=== PATIENT | female | born 1985 | race Caucasian/White ===

== ENCOUNTER → 2016-11-05 | Outpatient (CLI) | payer BC ==
[~2016-11-05] MED LIST: HYDCR1 EXT; HYDR-5688 PO; MTR600X PO; NORE0.3527 PO; OXYC5TAB PO; PRENTAB26 PO
--- NOTE | 2016-11-05 08:59 | DIAGNOSTIC IMAGING REPORT ---
PELVIS CT WITH INTRAVENOUS AND ORAL CONTRAST HISTORY: Prior . Pain at scar. TECHNIQUE: Multiaxial CT images of the pelvis are performed following the use of intravenous and oral contrast. COMPARISON STUDY: Abdomen and pelvis CT 12/11/2014. FINDINGS: No pneumoperitoneum or pneumatosis. No suspicious lytic or blastic osseous lesions. There is a skin marker overlying the lower anterior pelvic wall. Deep to the skin marker there is a linear scarlike density consistent with prior . No fluid collections or masses identified within the lower anterior pelvic wall. No pelvic or inguinal lymphadenopathy. The bladder, uterus, bilateral adnexa are unremarkable. No pelvic free fluid. The visualized loops of bowel show no wall thickening or obstruction. IMPRESSION: 1. Small linear scarlike density within the lower anterior abdominal wall consistent with prior scar. This is within the range of normal limits. There is no masses, fluid collections, or significant inflammatory change to suggest an acute process. 2. Otherwise, no significant abnormality identified within the pelvis. Electronically signed by: Byron Spangler M.D. 11/05/2016 8:57 AM Dictated Date/Time: 11/05/2016 8:51 AM
== END | disposition home or self-care (01) ==
LOC: C.CTS 08:21
PROVIDERS: ATTEND Surgery
DX: R10.9 Unspecified abdominal pain (principal); R19.00 Intra-abdominal and pelvic swelling, mass and lump, unspecified site

== ENCOUNTER 2016-12-16 12:28 | Day surgery (SDC) | payer BC, OTHER ==
[2016-12-01 14:26] VITALS: BMI 31.0
[~2016-12-16] VITALS: Ht 162.6 cm; Wt 82.7 kg
[~2016-12-16 12:28] MED LIST changes: +ATROPINE SULFATE 0.1 MG/ML 5ML SYR IV PRN; +EpHEDrine SULFATE INJ 50 MG/ML AMP IV PRN; +FENTANYL CITRATE INJ 50 MCG/1 ML 2 ML VIAL IV PRN; +HEPARIN SOD 5000 UNIT/0.5 ML CARP SQ SCH; -HYDCR1 EXT; -HYDR-5688 PO; +HYDROmorphone INJ 1 MG/ML SYR IV PRN; +LACTATED RINGER'S 1000ML 1,000 ML IV SCH; -MTR600X PO; +ONDANSETRON INJ 2 MG/ML 2 ML VIAL IV PRN; -OXYC5TAB PO
[2016-12-16 12:47] VITALS: BP 113/69; PULSE 100; TEMP 37.1; O2SAT 95; Ht 162.6 cm; Wt 82.7 kg
[2016-12-16] MEDS ORDERED: TRIAMCINOLONE ACET 40 MG/ML VIAL ONE (13:05)
[2016-12-16] MEDS ORDERED: DEXAMETHASONE SOD INJ 4 MG/ML VIAL ONE ×2 (13:14→14:08)
[2016-12-16] MEDS ORDERED: MIDAZOLAM HCL 1 MG/ML 2ML VIAL ONE ×3 (13:14→14:08)
[2016-12-16] MEDS ORDERED: GLYCOPYRROLATE INJ 0.2 MG/ML VIAL ONE (13:14)
[2016-12-16] MEDS ORDERED: SUCCINYLCHOLINE CHLORIDE 20 MG/ML 10 ML VIAL IV ONE ×2 (13:14→14:08)
[2016-12-16] MEDS ORDERED: LIDOCAINE HCL 2% 2 ML VIAL (20MG/ML) ONE ×2 (13:14→14:08)
[2016-12-16] MEDS ORDERED: EpHEDrine SULFATE INJ 50 MG/ML AMP ONE (13:14)
[2016-12-16] MEDS ORDERED: NEOSTIGMINE METHYLSULFATE 5 MG/5 ML SYR ONE (13:14)
[2016-12-16] MEDS ORDERED: PROPOFOL IV EMULSION 10 MG/ML 20 ML VIAL IV ONE ×3 (13:14→14:27)
[2016-12-16] MEDS ORDERED: ROCURONIUM BROMIDE 10 MG/ML 5 ML VIAL ONE (13:14)
[2016-12-16] MEDS ORDERED: PHENYLEPHRINE HCL INJ 10 MG/ML VIAL ONE (13:14)
[2016-12-16] MEDS ORDERED: FENTANYL CITRATE INJ 50 MCG/1 ML 2 ML VIAL ONE ×4 (13:14→15:13)
[2016-12-16] MEDS ORDERED: ONDANSETRON INJ 2 MG/ML 2 ML VIAL ONE ×3 (13:14→14:27)
[2016-12-16] MEDS ORDERED: METOCLOPRAMIDE HCL INJ 5 MG/ML 2 ML VIAL ONE (13:36)
[2016-12-16] MEDS ORDERED: ACETAMINOPHEN 1000 MG/100 ML IV IV ONE (13:36)
[2016-12-16] MEDS ORDERED: HYDR-5688 PO (13:57)
--- NOTE | 2016-12-16 13:59 | History & Physical Bridge Note ---
H&P Re-Evaluation Bridge Note: I have examined the patient, reviewed the History & Physical and in the interval since the performance of the History & Physical I have noted the following changes of clinical significance: No changes noted
[2016-12-16] MEDS: CEFAZOLIN 2000 MG/60 ML D5W IV SCH ×2 (14:00→14:31)
--- NOTE | 2016-12-16 14:01 | Discharge Instructions ---
Discharge Instructions Admission Reason for Admission: Abdominal Pain Discharge Discharge Diagnosis / Problem: Abdominal Pain Discharge Goals Goal(s): Decrease discomfort, Improve function Activity Recommendations Activity Limitations: as noted below Lifting Limitations: no more than 5 pounds Exercise/Sports Limitations: until after follow-up appointment May Resume Sexual Activity: after follow-up appointment Shower/Bathe: tomorrow . Instructions / Follow-Up Instructions / Follow-Up Please follow-up with Dr. Daigle in the office in 1-2 weeks. Please call the office at [phone] with any questions or concerns. Current Hospital Diet Patient's current hospital diet: Discharge Diet Recommended Diet: Regular Diet Pending Studies Studies pending at discharge: no Medical Emergencies . Who to Call and When: Medical Emergencies: If at any time you feel your situation is an emergency, please call 911 immediately. . Non-Emergent Contact Non-Emergency issues call your: Primary Care Provider, Surgeon Call Non-Emergent contact if: temperature is above 101, your pain is not controlled, wound has increased drainage, wound has increased redness . "Provider Documentation" section prepared by Renetta Jones. VTE Core Measure Inpt VTE Proph given/why not?: Unfractionated heparin SQ, SCD's
[2016-12-16] MEDS ORDERED: BUPIVACAINE/EPINEPHRINE 0.5% MPF 1:200,000 30 ML VIAL ONE (14:14)
[2016-12-16] MEDS ORDERED: DiphenhydrAMINE HCL 50 MG/ML VIAL ONE (14:16)
[2016-12-16] MEDS ORDERED: SODIUM CHLORIDE 0.9% 1000ML 1,000 ML IV SCH (14:50)
[2016-12-16] MEDS ORDERED: ONDANSETRON INJ 2 MG/ML 2 ML VIAL IV PRN (15:00)
[2016-12-16] MEDS ORDERED: KETOROLAC TROMETHAMINE 30 MG/ML VIAL IV. PRN (15:00)
[2016-12-16] MEDS ORDERED: IBUPROFEN 600 MG TAB PO PRN (15:00)
[2016-12-16] MEDS ORDERED: HYDROCODONE/ACETAMOPHEN 5/325MG TAB PO PRN ×2 (15:00)
--- NOTE | 2016-12-16 15:06 | [facility] Operative Report ---
Operative Report Operative Date Dec 16, 2016. Pre-Operative Diagnosis Abdominal Pain Post-Operative Diagnosis adhesions, ventral hernia Procedure(s) Performed dx laparoscopy, enterolysis, repair ventral hernia with mesh Surgeon Dr. Daigle Restuarant Crew Worker Surgeon(s) AYANNA Galvan/AYANNA Valenzuela Estimated Blood Loss 10 ml Findings lower midline ventral hernia adhesions Specimens none per surgeon Anesthesia GET Complication(s) None Disposition Recovery Room / PACU I attest to the content of the Intraoperative Record and any orders documented therein. Any exceptions are noted below.
--- NOTE | 2016-12-16 15:26 | Anesthesiology Progress Note ---
Anesthesia Post Op Note Date & Time Dec 16, 2016 at 15:27 Vital Signs Pain Intensity: 5 Vital Signs Past 12 Hours Date Time Temp Pulse Resp B/P Pulse Ox O2 Delivery O2 Flow Rate FiO2 12/16/16 15:15 92 21 98 12/16/16 15:15 92 21 12/16/16 15:13 123/66 12/16/16 15:10 84 19 12/16/16 15:10 84 19 98 12/16/16 15:08 122/67 12/16/16 15:05 89 19 99 12/16/16 15:05 89 19 12/16/16 15:03 110/67 12/16/16 15:00 37.2 100 20 119/61 100 Mask 10 12/16/16 15:00 99 20 12/16/16 15:00 99 20 99 12/16/16 12:47 37.1 100 20 113/69 95 Room Air Notes Mental Status: alert / awake / arousable, participated in evaluation Pt Amnestic to Procedure: Yes Nausea / Vomiting: adequately controlled Pain: adequately controlled Airway Patency, RR, SpO2: stable & adequate BP & HR: stable & adequate Hydration State: stable & adequate Anesthetic Complications: no major complications apparent
[2016-12-16 15:50] VITALS: BP_SYST 113; BP_SYST 99; BP_DIAS 54; BP_DIAS 60; PULSE 83; TEMP 37.1; TEMP 37.2; O2SAT 92; O2SAT 93
[2016-12-16] MEDS ORDERED: HYDROCODONE/ACETAMOPHEN 5/325MG TAB ONE (15:58)
--- NOTE | 2016-12-16 16:09 | OPERATIVE REPORT ---
DATE OF OPERATION: 12/16/2016 PREOPERATIVE DIAGNOSIS: Persistent lower abdominal pain. POSTOPERATIVE DIAGNOSES: 1. Adhesions. 2. Small ventral hernia. PROCEDURES: Diagnostic laparoscopy with enterolysis and repair of ventral hernia with mesh. SURGEON: Dr. Daigle. ASSISTANTS: Vernon Roblero PA-C and Renetta Jones PA-C. ESTIMATED BLOOD LOSS: Approximately 10 mL. COMPLICATIONS: No immediate. ANESTHESIA: General. OPERATIVE NOTE: After informed consent was obtained, the patient was taken to the operating suite and placed in the supine position. After successful intubation, a Saeed catheter was placed and the abdomen was sterilely prepped and draped in usual fashion. The periumbilical incision made with an 11 blade scalpel and carried down through the soft tissue using electrocautery. Anterior rectus fascia was opened using electrocautery and two #0 Vicryl stay sutures were placed. Peritoneum was elevated with hemostats and incised under direct vision using a Metzenbaum scissors. A finger sweep was performed and a 12 mm Aide trocar was placed. The abdomen was insufflated to 18 mmHg. Laparoscope was inserted in the abdomen and the abdomen examined 360 degrees. We immediately noted some omental adhesions stuck up to the anterior abdominal wall directly over the patient's area of pain. Her ovaries, uterus, tubes, etc. all looked okay as did her pelvis. There was no bowel abnormalities. There were no endometrial implants seen. We placed a left mid abdominal 5 mm trocar and a right mid abdominal 5 mm trocar. We used a Harmonic scalpel to take down what we initially thought was a simple adhesion. Once we took this down; however, we realized that she had a small, probably 1.5 to 2 cm ventral hernia. We used a piece of round mesh with an antiadhesive barrier, we folded it and put it into the abdomen. We made a small incision directly over the hernia and used a fascial closure device to pull the sutures up through the skin, pulling the mesh directly over the defect. We then used a ProTacker to tack the mesh in place in 360 degrees. We then cut the suture and removed it. We looked around the abdomen one final time. There was adequate hemostasis. No other abnormalities were identified. The trocars were all removed and the abdomen was desufflated. The fascia of the camera port was closed using 0 Vicryl in a [id number] fashion. The wounds were irrigated and closed using 4-0 Monocryl. Some 0.5% Marcaine was injected around the incisions for postoperative analgesia and skin glue was used as a dressing. The patient was awakened, extubated, and transferred to recovery in stable condition. I attest to the content of the Intraoperative Record and any orders documented therein. Any exceptions are noted below. MURRAY
[2016-12-16 16:20] VITALS: BP 90/48; PULSE 90; O2SAT 93
[2016-12-16 16:50] VITALS: BP 94/63; PULSE 90; TEMP 36.6; O2SAT 97
== END 2016-12-16 17:25 | disposition home or self-care (01) ==
LOC: C.ACU 12:28
PROVIDERS: ATTEND Surgery
DX: K43.9 Ventral hernia without obstruction or gangrene (principal); K66.0 Peritoneal adhesions (postprocedural) (postinfection)

== ENCOUNTER 2019-06-29 05:46 | Inpatient (IN) ==
--- NOTE | 2019-06-28 15:23 | History & Physical Report ---
Date of Service June 28, 2019 Assessment & Plan (1) Supervision of normal intrauterine in multigravida: Present on Admission?: Yes (2) History of delivery, antepartum: Present on Admission?: Yes (3) Encounter for sterilization: The risks, benefits, and alternatives to the surgery have been discussed. While the benefits will be delivery of the with permanent surgical sterilization, the risks are bleeding, infection, inadvertent injury to bowel or bladder, recurrence of abdominal wall hernia, readmission, or reoperation. We have also discussed risks of the tubal ligation including failure of the procedure itself. Failure rate quoted at 1-3%. We have also discussed the increased risk of ectopic or regret. All questions answered of the patient. The permit has been signed, and she wishes to proceed. History of Present Illness Chief Complaint: Repeat section and bilateral tubal ligation Primary Care Provider: Jenny Berumen DO The patient is a 34-year-old 3 para 2 with an EDC is 06 July by first-trimester ultrasound who is admitted for repeat section with bilateral tubal ligation. This was a unplanned for the patient conceiving on oral contraceptive pills. While her 1st delivery was a vaginal delivery, her 2nd delivery was a primary section for breech presentation. Six months postoperatively the patient developed pain and had a diagnostic laparoscopy which showed adhesions and a small ventral wall hernia. The hernia was repaired with abdominal mesh. During this the patient was apprised of the risks benefits and alternatives to delivery and has opted for repeat section. The patient also desires permanent surgical sterilization. The patient's course was remarkable for an episode of colicky pain felt to be secondary to kidney stones. Patient did have an MRI which did not confirm the diagnosis. Renal colic pain her resolved. The patient's blood type is O positive, antibody negative, rubella immune, hepatitis B negative, she declined cell free DNA screening, she had a normal 1 hour Glucola x2, and a negative 3rd trimester beta strep culture. Allergies Allergy/AdvReac Type Severity Reaction Status Date / Time No Known Drug Allergies Allergy Verified 06/28/19 14:59 Home Medications Home Medications Medication Instructions Recorded Confirmed Type loratadine 10 mg PO QAM 01/12/19 06/28/19 History sertraline 50 mg PO QAM 01/12/19 06/28/19 History 1 tab PO DAILY 05/28/19 06/28/19 History vitamin,calcium,rntwqwjn-vctd-zurgt acid tablet diphenhydramine HCl 25 mg PO HS PRN 06/06/19 06/28/19 History Patient History Medical History Anxiety Cardiac murmur as a child; resolved History of kidney stones Temporomandibular joint disorder Surgical History H/O laparoscopy H/O ventral hernia repair History of sinus surgery Hx of section Family History Mother Diabetes Grandmother (Maternal) Hypertension Diabetes Grandmother (Paternal) Hypertension Diabetes Father Pancreas cancer Prostate cancer Grandfather (Maternal) Diabetes Grandfather (Paternal) Diabetes Social History Preferred Language: Japanese Communication Ability: Effective Integrated Logistics Programs Director Required: No Beliefs That Will Affect Care: None Current Living Situation: Spouse Feels Safe at Home: Yes Smoking Status: Never smoker Second Hand Exposure: No ; Hx Alcohol Use: No Hx Substance Use: No Physical Exam Constitutional: WD/WN, vitals as above Respiratory: Auscultation: lungs clear to auscultation bilaterally Cardiovascular: RRR, no murmur, no edema Extremities: no calf tenderness Gastrointestinal (Abdomen): Gravid, vertex, positive heart tones, estimated weight is 7 0.5 lb, well-healed Pfannenstiel type incision Neurologic: patellar DTR's 2+ bilat, sensation intact Genitourinary: Cervical exam declined by the patient
--- NOTE | 2019-06-28 15:42 | Anesthesiology Consultation ---
Date of Service June 28, 2019 Assessment & Plan (1) Encounter for pre-operative examination: - C/S: 06/04/16 (breech): SAB x3 at L3-L4 at [facility]; patient states she has unilateral numbness initially but it did distribute evenly eventually. She also states that she had significant pain toward end of c/s - Labs: per OB, no labs to be drawn at PAT visit. Chart Review Chart Review: Acceptable Risk for Surgery (pending labs AM DOS) and Patient seen in Pre Admission Testing Teaching & Discussion Pre-Anesthesia Teaching/Discussion Notes: Instructed NPO after midnight before surgery,except medications with 15 cc of water. Medication instructions provided according to the PAT guidelines. History Surgery Operation Date: 06/29/19 07:30 Proposed Procedures p Section - Luis Santos Jr, MD, FACOG s Post Tubal Ligation - Luis Santos Jr, MD, FACOG Height/Weight Height: 5 ft 4.75 in Weight: 97.3 kg Allergies Allergy/AdvReac Type Severity Reaction Status Date / Time No Known Drug Allergies Allergy Verified 06/28/19 14:59 blue chucks Allergy skin Uncoded 06/28/19 15:56 irritation with blue chucks with prior c/s Additional Notes: *OB made aware of reaction to blue chucks/disposable pads with prior c/s* Medications Home Medications Medication Instructions Recorded Confirmed Last Taken loratadine 10 mg PO QAM 01/12/19 06/28/19 Unknown sertraline 50 mg PO QAM 01/12/19 06/28/19 Unknown 1 tab PO DAILY 05/28/19 06/28/19 Unknown vitamin,calcium,bbhuwkym-jbpn-jrspc acid tablet diphenhydramine HCl 25 mg PO HS PRN 06/06/19 06/28/19 Unknown Past Medical History Medical History Anxiety History of kidney stones Obesity Temporomandibular joint disorder occasional clicking; no locking Exercise / Class Metabolic Activity III < 4 Walking/Shop/Light housework Past Family History Family History Mother Diabetes Grandmother (Maternal) Hypertension Diabetes Grandmother (Paternal) Hypertension Diabetes Father Pancreas cancer Prostate cancer Grandfather (Maternal) Diabetes Grandfather (Paternal) Diabetes Past Surgical History Surgical History H/O laparoscopy H/O ventral hernia repair History of sinus surgery Hx of section 06/04/16 (breech): SAB x3 at L3-L4 at [facility]; patient states she has unilateral numbness initially but it did distribute evenly eventually. She also states that she had significant pain toward end of c/s Past Anesthesia History Other 06/04/16 (breech): SAB x3 at L3-L4 at [facility]; patient states she has unilateral numbness initially but it did distribute evenly eventually. She also states that she had significant pain toward end of c/s History of PONV History of PONV Social History Smoking Status: Never smoker Do You Dip or Chew Tobacco: No Hx Alcohol Use: No Hx Substance Use: No substance use type: does not use Review of Systems related reflux and LBP. Patient denies chest pain, shortness of breath, cough, wheezing, palpitations. Physical Exam Vital Signs VITALS BP 105/69 P 75 TEMP 98.0 SP02 97%RA RESP 22 PHYSICAL Full neck and c-spine range of motion. Full TMJ range of motion. TMD 4 finger breaths Mallampati Score 1 Dentition: intact Lungs: clear throughout to auscultation Cardiac: regular rate and rhythm, no murmurs noted Spine: normal Extremities: no edema Short neck
[2019-06-29] MEDS ORDERED: CITRIC ACID/SODIUM CITRATE 15 ML UDC PO SCH (06:00)
[2019-06-29] MEDS ORDERED: LACTATED RINGER'S 1,000 ML IV SCH ×2 (06:00→09:59)
[2019-06-29] MEDS ORDERED: CEFAZOLIN 3000MG 65 ML IV SCH (06:00)
[2019-06-29 06:42] LABS: Basophils # (auto) 0.03 K/uL (0-0.2); Basophils % (auto) 0.3 %; Eosinophils # (auto) 0.12 K/uL (0-0.5); Eosinophils % (auto) 1.2 %; Hemoglobin 12.5 g/dL (12.0-16.0); Immature Granulocytes # (auto) 0.19 K/uL (0.00-0.02); Immature Granulocytes % (auto) 1.8 %; Lymphocytes # (auto) 1.78 K/uL (1.2-3.4); Lymphocytes % (auto) 17.2 %; Mean Corpuscular Hemoglobin 32.3 pg (25-34); Mean Platelet Volume 11.2 fL (7.4-10.4); Monocytes # (auto) 0.68 K/uL (0.11-0.59); Monocytes % (auto) 6.6 %; Neutrophils # (auto) 7.57 K/uL (1.4-6.5); Neutrophils % (auto) 72.9 %; Platelet Count 156 K/uL (130-400); RDW Coefficient of Variation 13.8 % (11.5-14.5); RDW Standard Deviation 46.5 fL (36.4-46.3); Red Blood Count 3.87 M/uL (4.2-5.4); White Blood Count 10.37 K/uL (4.8-10.8)
[2019-06-29 06:45] LABS: Mean Corpuscular Hgb Conc 34.7 g/dL (32-36)
[2019-06-29] MEDS ORDERED: OXYTOCIN 10 UNITS/ML VIAL ONE ×6 (06:54→08:35)
[2019-06-29] MEDS ORDERED: fentaNYL citrate 100 MCG/2 ML VIAL ONE (06:54)
[2019-06-29] MEDS ORDERED: MoRPHine SULFATE PF 1 MG/ML 10 ML AMP/VIAL ONE (06:54)
[2019-06-29] MEDS ORDERED: ONDANSETRON INJ 2 MG/ML 2 ML VIAL ONE (06:54)
--- NOTE | 2019-06-29 07:09 | History & Physical Bridge Note ---
Date of Service June 29, 2019 History & Physical Bridge Note I have examined the patient, reviewed the History & Physical and in the interval since the performance of the History & Physical I have noted the following changes of clinical significance: no changes noted
[2019-06-29] MEDS ORDERED: NALOXONE HCL 0.4 MG/1 ML VIAL/CARP IV PRN (07:47)
[2019-06-29] MEDS ORDERED: NALOXONE HCL 0.08 MG in SYRINGE 1.8 ML IV PRN (07:47)
[2019-06-29] MEDS ORDERED: MoRPHine SULFATE PF 1 MG/ML 10 ML AMP/VIAL INT SPINAL ONE (07:47)
[2019-06-29] MEDS ORDERED: NALOXONE HCL 1 MG in SODIUM CHLORIDE 0.9% 1000ML 1,000 ML IV PRN (07:47)
[2019-06-29] MEDS ORDERED: LACTATED RINGER'S 500 ML IV PRN (07:47)
[2019-06-29] MEDS ORDERED: DiphenhydrAMINE HCL 50 MG/ML VIAL IV PRN ×2 (07:47→09:59)
[2019-06-29] MEDS ORDERED: NALBUPHINE HCL INJ 10 MG/ML AMP IV PRN (07:47)
[2019-06-29] MEDS ORDERED: PROMETHAZINE HCL 25 MG in SODIUM CHLORIDE 0.9% 50 ML IV PRN ×2 (07:47→09:59)
[2019-06-29] MEDS ORDERED: ONDANSETRON INJ 2 MG/ML 2 ML VIAL IV PRN (07:47)
[2019-06-29] MEDS ORDERED: ePHEDrine sulfate 50 MG/ML AMP IV PRN (07:47)
[2019-06-29] MEDS ORDERED: MoRPHine SULFATE 2 MG/ML CARP IV PRN (07:47)
[2019-06-29] MEDS ORDERED: SODIUM CHLORIDE 0.9% 1000ML 1,000 ML IV SCH (08:00)
[2019-06-29] MEDS ORDERED: NO NARCOTICS OR SEDATIVES SCH (08:00)
[2019-06-29] MEDS ORDERED: DC INTRASPINAL MORPHINE SCH (08:00)
[2019-06-29] MEDS ORDERED: PHENYLEPHRINE 100MCG/ML 5ML SYR ONE (08:04)
[2019-06-29] MEDS ORDERED: CARBOPROST TROMETHAMINE 250 MCG/ML AMPUL ONE (08:16)
[2019-06-29] MEDS ORDERED: TRANEXAMIC ACID 100 MG/ML 10 ML VIAL ONE (08:20)
[2019-06-29 08:59] LABS: Base Excess Cord Arterial Bld -2.4 mEq/L (-9-1.8); CO2 Cord Arterial Blood 48 mmHg (39.1-73.5); Cord Venous Blood HCO3 23 mmol/L (18.4-26.8); Cord Venous Blood PCO2 39 mmHg (30.4-57.2); Cord Venous Blood PO2 33 mmHg (14.1-43.3); Cord Venous Blood pH 7.39 (7.20-7.44); HCO3 Cord Arterial Blood 24 mmol/L (19.7-28.5); PO2 Cord Arterial Blood 20.1 % (4.1-31.7); pH Cord Arterial Blood 7.32 (7.1-7.38)
[2019-06-29 09:00] LABS: Oxygen Sat Cord Arterial Blood < 60.0 % (<60)
--- NOTE | 2019-06-29 09:13 | Post Operative Brief Note ---
PG Immediate Post Op with CF Date of Surgery June 29, 2019 Pre & Post Diagnosis Operation Date: 06/29/19 07:30 Pre-Op Diagnosis: Term ;Two previous Caesarean Sections;Desires Permanent Surgical Sterilization Post-Op Diagnosis: Same 2) Uterine atony Procedure Operation Date: 06/29/19 07:30 Actual Procedures p Section in LD(Bilateral) - Luis Santos Jr, MD, FACOG Surgeon Luis Santos Jr, MD, FACOG [employer] Electrical [employer]er Rian Gomez Estimated Blood Loss 1,000 Findings See Below (Viable male infant, normal appearing tubes and ovaries, bilateral tubal ligation. Uterine atony treated with IM methergine, Intrauterine IM metagerine, and Intrauterine IM pitocin) Specimens Specimen Description: A. placenta-exam B. cord blood C. portions of right and left fallopian tubes D. arterial and venous gases Drains Saeed Catheter
[2019-06-29] MEDS ORDERED: OXYTOCIN 10 UNITS/ML VIAL IM ONE (09:25)
[2019-06-29] MEDS ORDERED: METHYLERGONOVINE MALEATE 0.2 MG/ML AMP IM STA (09:26)
[2019-06-29] MEDS: KETOROLAC 30 MG/ML VIAL IV PRN ×3 (09:46→20:57)
[2019-06-29] MEDS ORDERED: SUPERCREAM 0.870% 15 GM JAR EXT PRN (09:59)
[2019-06-29] MEDS ORDERED: MAGNESIUM HYDROXIDE SUSP 30 ML UDC PO PRN (09:59)
[2019-06-29] MEDS ORDERED: BENZOCAINE 20% AER SPR 82.5 GM CAN EXT PRN (09:59)
[2019-06-29] MEDS ORDERED: HYDROCORTISONE ACETATE 25 MG SUPP PR PRN (09:59)
[2019-06-29] MEDS ORDERED: DIPHTHERIA/TETANUS/PERTUSSIS 0.5 ML SYR/VIAL IM ONE (09:59)
[2019-06-29] MEDS ORDERED: KETOROLAC 30 MG/ML VIAL IV PRN (09:59)
[2019-06-29] MEDS ORDERED: ZOLPIDEM TARTRATE 5 MG TAB PO PRN (09:59)
[2019-06-29] MEDS ORDERED: SENNA 8.6 MG TAB PO PRN (09:59)
[2019-06-29] MEDS: OXYTOCIN 20 UNITS in LACTATED RINGER'S 1,000 ML IV SCH ×2 (10:39→19:28)
--- NOTE | 2019-06-29 12:02 | Operative Report ---
DATE OF OPERATION: 06/29/2019 PREOPERATIVE DIAGNOSES: 1. Term . 2. Previous section. 3. Desires permanent surgical sterilization. POSTOPERATIVE DIAGNOSES: 1. Term . 2. Post- uterine atony. PROCEDURES PERFORMED: 1. Repeat low cervical transverse section. 2. Bilateral tubal ligation. SURGEON: Luis Santos MD. TAIL BOARD MAN: Aleksandra Gomez MD. ANESTHESIA: General. FINDINGS: A viable male infant with Apgars of 8 and 9. Arterial and venous cord gases are pending. Normal appearing tubes and ovaries bilaterally. Bilateral tubal ligation performed with partial left salpingectomy for hemostatic control. Post- atony treated with intrauterine injections of both Methergine and Pitocin. Previous surgical mesh reapproximated during closure. PROCEDURE IN DETAIL: The patient was taken to the Operating Room after general anesthesia was placed in a supine position, draped and prepped in the usual fashion. Pfannenstiel type incision was made. Underlying subcutaneous tissue was dissected down to the ventral abdominal fascia, which was nicked and opened in a horizontal manner. Preperitoneal fascia was dissected away until the peritoneal cavity was opened. Opening of the peritoneal cavity revealed the surgical mesh in between the rectus muscles. The mesh was bifurcated to allow entry into the peritoneal cavity. The peritoneum overlying the uterus was elevated, opened in a semi-lunar fashion in the inferior margin, which was taken down creating the bladder flap. The uterus was entered sharply and extended in a semilunar fashion manually. Viable male infant was delivered. Cord was clamped and cut and the baby was passed off to Pediatrics, who was in attendance of the delivery. Cord gases, cord blood samples were obtained and the placenta was delivered spontaneously. The uterus was exteriorized and wiped clean of any residual blood and clot. Immediate atony was noted and vigorous massage was instituted to try to improve uterine tone. Anesthesia gave the patient a dose of Methergine 2 mg IM at that point. Continued atony was noted. The uterine incision though was closed with 2 layers of 4-0 Vicryl, the first a running locking stitch, the second an imbricating stitch. Atony was still present and the patient received Pitocin 20 units directly into the myometrium. The fallopian tubes were isolated bilaterally, a segment of which was removed and sent for pathological evaluation. The tie on the left fallopian tube came clear, was reclamped, but a distal left salpingectomy was performed for hemostatic control. Hemostasis was present in the tubes, but uterine atony was still present. Methergine was then injected directly into the myometrium. The uterus returned to the pelvic cavity. The pericolic gutters were cleared bilaterally of any blood tissue and/or clot. The uterine incision was copiously irrigated with 1000 mL of saline. Uterine atony had resolved at this point. Hysterotomy incision was again visualized and hemostasis was present. Sponge and needle count was correct. At this point, the edges of the surgical mesh were isolated and were reapproximated with a running 2-0 silk suture. The rectus muscle was then plicated in the midline with a running 2-0 Vicryl stitch. The fascia was closed laterally to the midline with 0 PDS suture. The subcutaneous tissue was irrigated with warm saline and the skin incision was closed with 4-0 Monocryl suture. Sterile dressing was applied. The patient was taken to Recovery Room in satisfactory condition. I attest to the content of the Intraoperative Record and any orders documented therein. Any exception s are noted below.
--- NOTE | 2019-06-29 12:08 | Anesthesiology Progress Note ---
Date of Service June 29, 2019 Anesthesia Post Procedure Vital Signs Vital Signs: Temp Pulse Resp BP Pulse Ox 06/29/19 11:42 71 114/56 L 06/29/19 11:41 72 95 06/29/19 11:36 86 96 06/29/19 11:32 75 118/63 06/29/19 11:31 81 94 06/29/19 11:29 79 94 06/29/19 11:26 83 95 06/29/19 11:23 85 94 06/29/19 11:22 85 131/54 L 06/29/19 11:21 75 96 06/29/19 11:16 86 95 06/29/19 11:15 78 93 06/29/19 11:12 82 113/67 06/29/19 11:11 82 96 06/29/19 11:06 73 96 06/29/19 11:05 76 92 06/29/19 11:02 79 115/69 06/29/19 11:01 83 95 06/29/19 10:57 81 92 06/29/19 10:56 74 97 06/29/19 10:52 69 107/63 06/29/19 10:51 75 98 06/29/19 10:50 80 91 06/29/19 10:46 70 97 06/29/19 10:45 79 94 06/29/19 10:42 76 111/62 06/29/19 10:41 73 95 06/29/19 10:36 75 95 06/29/19 10:35 76 93 06/29/19 10:32 66 106/63 06/29/19 10:31 78 96 06/29/19 10:26 75 96 06/29/19 10:22 65 116/63 06/29/19 10:21 72 96 06/29/19 10:20 18 06/29/19 10:16 71 95 06/29/19 10:12 67 114/60 06/29/19 10:11 79 97 06/29/19 10:10 18 06/29/19 10:06 72 97 06/29/19 10:03 82 127/58 L 06/29/19 10:02 74 92 06/29/19 10:01 74 99 06/29/19 10:00 18 06/29/19 09:56 63 100 06/29/19 09:55 74 92 06/29/19 09:52 68 123/57 L 06/29/19 09:51 65 100 06/29/19 09:50 18 06/29/19 09:46 77 98 06/29/19 09:42 62 121/68 06/29/19 09:41 65 98 06/29/19 09:40 18 06/29/19 09:38 71 92 06/29/19 09:36 63 100 06/29/19 09:32 85 93 06/29/19 09:31 70 99 06/29/19 09:30 18 06/29/19 09:26 68 93 06/29/19 09:21 72 114/56 L 100 06/29/19 09:20 36.3 C L 78 18 91 06/29/19 07:17 18 06/29/19 06:59 85 116/77 06/29/19 05:55 36.3 C L 86 18 120/73 06/29/19 05:35 36.3 C L 18 Pain Intensity Abdomen: Pain Intensity: 5 Transfer of Care Handoff Completed per policy Notes Mental Status: alert / awake / arousable and participated in evaluation Patient Amnestic to Procedure: No Nausea / Vomiting: adequately controlled Pain: adequately controlled Airway Patency, RR, SpO2: stable & adequate BP & HR: stable & adequate Hydration State: stable & adequate Neuraxial Anesthesia: was administered and sensory block is resolving Anesthetic Complications: no major complications apparent and Pt Satisfied with anesthetic care
[2019-06-29] MEDS: MEPERIDINE HCL 25 MG/ML CARP IV PRN (15:59)
[2019-06-29] MEDS: SIMETHICONE 80 MG CHEW PO SCH ×2 (17:27→20:57)
[2019-06-29] MEDS: DOCUSATE SODIUM 100 MG CAP PO SCH (20:57)
[2019-06-30] MEDS: MEPERIDINE HCL 25 MG/ML CARP IV PRN (01:31)
[2019-06-30] MEDS: ONDANSETRON INJ 2 MG/ML 2 ML VIAL IV PRN ×2 (02:21→16:30)
[2019-06-30] MEDS: IBUPROFEN 600 MG TAB PO PRN ×4 (04:41→21:00)
[2019-06-30] MEDS: OXYCODONE/ACETAMINOPHEN 5mg/325mg TAB PO PRN ×5 (04:42→22:39)
[2019-06-30 06:28] LABS: Basophils # (auto) 0.03 K/uL (0-0.2); Basophils % (auto) 0.3 %; Eosinophils % (auto) 0.9 %; Hematocrit (blood only) 28.3 % (37-47); Hemoglobin 9.7 g/dL (12.0-16.0); Immature Granulocytes # (auto) 0.13 K/uL (0.00-0.02); Immature Granulocytes % (auto) 1.2 %; Lymphocytes # (auto) 1.05 K/uL (1.2-3.4); Lymphocytes % (auto) 9.7 %; Mean Corpuscular Hemoglobin 31.5 pg (25-34); Mean Corpuscular Hgb Conc 34.3 g/dL (32-36); Mean Corpuscular Volume 91.9 fL (80-100); Mean Platelet Volume 10.5 fL (7.4-10.4); Monocytes # (auto) 0.87 K/uL (0.11-0.59); Monocytes % (auto) 8.1 %; Neutrophils # (auto) 8.59 K/uL (1.4-6.5); Neutrophils % (auto) 79.8 %; Platelet Count 138 K/uL (130-400); RDW Coefficient of Variation 14.2 % (11.5-14.5); RDW Standard Deviation 46.1 fL (36.4-46.3); Red Blood Count 3.08 M/uL (4.2-5.4); White Blood Count 10.77 K/uL (4.8-10.8)
--- NOTE | 2019-06-30 08:15 | Obstetrical Progress Note ---
Date of Service June 30, 2019 Assessment & Plan (1) History of delivery, antepartum: doing well overall, enc ambulation, adv diet, await flatus, cont , hgb noted. watch leg cramps. Subjective Ambulation: ambulating normally Voiding: no voiding problems Passing Gas:: No Diet Tolerance:: clear liquids Lochia:: Small Feeding Type:: breast feeding doing well overall, pain controlled with pain meds. baby having trouble keeping up blood sugar so in nursery. Physical Exam Constitutional WD/WN, vitals as above Respiratory normal respiratory effort, lungs clear to auscultation Cardiovascular Rate/Rhythm: regular rate and regular rhythm Gastrointestinal (Abdomen) Inspection/Auscultation: + hypoactive bowel sounds; abdomen not distended Percussion/Palpation: abdomen soft; abdomen nontender (some tenderness in sub q on right upper quad. ) Musculoskeletal right calf with cramping, no cord, not red, no lump. bilateral legs equal in size. Genitourinary FF 2 down non tender. incision c/d/i Results & Data Vital Signs (Past 12 Hours) Vital Signs Temp Pulse Resp BP Pulse Ox 06/30/19 03:20 98.2 F 90 18 107/60 06/30/19 01:40 18 98 06/30/19 00:15 18 100 06/29/19 23:20 98.1 F 79 18 110/59 L 100 06/29/19 22:00 18 99 06/29/19 21:00 18 98 06/29/19 20:55 18 98
[2019-06-30] MEDS: PRENATAL VITAMIN 1 TAB PO SCH (08:25)
[2019-06-30] MEDS: DOCUSATE SODIUM 100 MG CAP PO SCH ×2 (08:25→21:00)
[2019-06-30] MEDS: FERROUS SULFATE 325 MG TAB PO SCH (08:26)
[2019-06-30] MEDS: SIMETHICONE 80 MG CHEW PO SCH ×4 (08:27→21:00)
[2019-06-30] MEDS: SERTRALINE HCL 50 MG TABLET PO SCH (09:50)
[2019-06-30] MEDS: LORATADINE 10 MG TAB PO SCH (09:50)
--- NOTE | 2019-06-30 17:00 | Anesthesiology Progress Note ---
Date of Service June 30, 2019 Anesthesia Post Procedure Vital Signs Vital Signs: Temp Pulse Resp BP Pulse Ox 06/30/19 15:23 36.6 C 81 16 108/62 06/30/19 07:20 36.3 C L 75 16 97/53 L 06/30/19 03:20 36.8 C 90 18 107/60 06/30/19 01:40 18 98 06/30/19 00:15 18 100 06/29/19 23:20 36.7 C 79 18 110/59 L 100 06/29/19 22:00 18 99 06/29/19 21:00 18 98 06/29/19 20:55 18 98 06/29/19 19:30 36.5 C 79 18 98/58 L 100 06/29/19 18:41 18 98 06/29/19 17:40 20 100 Pain Intensity Abdomen: Pain Intensity: 2 Transfer of Care Handoff Completed per policy Notes Mental Status: alert / awake / arousable and participated in evaluation Nausea / Vomiting: adequately controlled Pain: adequately controlled Airway Patency, RR, SpO2: stable & adequate BP & HR: stable & adequate Hydration State: stable & adequate Neuraxial Anesthesia: was administered and sensory block resolved Anesthetic Complications: no major complications apparent and Pt Satisfied with anesthetic care
[2019-06-30] MEDS ORDERED: BISACODYL 5 MG TABEC PO SCH (20:00)
[2019-07-01] MEDS: IBUPROFEN 600 MG TAB PO PRN ×5 (04:22→23:51)
[2019-07-01] MEDS: OXYCODONE/ACETAMINOPHEN 5mg/325mg TAB PO PRN ×5 (04:23→23:50)
[2019-07-01 06:23] LABS: Hematocrit (blood only) 29.3 % (37-47); Hemoglobin 9.9 g/dL (12.0-16.0)
[2019-07-01] MEDS: SIMETHICONE 80 MG CHEW PO SCH ×4 (08:42→20:11)
[2019-07-01] MEDS: LORATADINE 10 MG TAB PO SCH (08:42)
[2019-07-01] MEDS: SERTRALINE HCL 50 MG TABLET PO SCH (08:42)
[2019-07-01] MEDS: PRENATAL VITAMIN 1 TAB PO SCH (08:43)
[2019-07-01] MEDS: FERROUS SULFATE 325 MG TAB PO SCH (08:43)
[2019-07-01] MEDS: DOCUSATE SODIUM 100 MG CAP PO SCH ×2 (08:43→20:11)
[2019-07-01] MEDS ORDERED: BISACODYL 10 MG SUPP PR PRN (09:08)
--- NOTE | 2019-07-01 09:40 | Obstetrical Progress Note ---
Date of Service July 01, 2019 Assessment & Plan (1) History of delivery, antepartum: - H/H stable - tenderness in RUQ, suspect trauma from massage for delivery of infant - ? hematoma - no discoloration, H/H stable - continue to observe - all questions answered Subjective Ambulation: ambulating normally Voiding: no voiding problems Intermittent RUQ pain, "sometimes I feel a lump" Physical Exam Constitutional WD/WN, vitals as above Respiratory normal respiratory effort, lungs clear to auscultation Cardiovascular RRR, no murmur, no edema Gastrointestinal (Abdomen) Inspection/Auscultation: abdomen normal to inspection and + abdominal surgical incision (clean & dry) Percussion/Palpation: + abdomen tender (RUQ along rectus muscle) Musculoskeletal (-) deep calf tenderness Results & Data Vital Signs (Past 12 Hours) Vital Signs Temp Pulse Resp BP Pulse Ox 07/01/19 07:35 98.1 F 71 14 107/61 96 06/30/19 23:55 98.2 F 88 16 102/58 L 97
[2019-07-02] MEDS: OXYCODONE/ACETAMINOPHEN 5mg/325mg TAB PO PRN ×4 (06:14→21:07)
[2019-07-02] MEDS: IBUPROFEN 600 MG TAB PO PRN ×4 (06:14→21:07)
--- NOTE | 2019-07-02 06:48 | Obstetrical Progress Note ---
Date of Service <Bishop Breensammi - Last Filed: 07/02/19 06:48> July 02, 2019 Assessment & Plan <Bishop BreenDO sammi - Last Filed: 07/02/19 06:48> (1) History of delivery, antepartum: -POD#2 -Vitals reviewed, WNL (Tmax 36.9) - GBS -, Blood Type O+ - Clinically stable. - Feels well today. Eating well, voiding well, ambulating well. - Pain well controlled. - Routine post care - H/H stable - tenderness in RUQ, suspect trauma from massage for delivery of - ? hematoma - no discoloration, H/H stable - continue to observe - all questions answered Day #:: 2 Subjective <Bishop BreenDO sammi - Last Filed: 07/02/19 06:48> Ambulation: ambulating normally Voiding: no voiding problems Passing Gas:: Yes Diet Tolerance:: regular diet Lochia:: Small Feeding Type:: breast feeding Current Pain Level(1-10): 2 (Can go to 6/10 with movement, improves with analgesics) Patient is a 34 POD#2. Patient states she is doing better this morning, but still states she feels a "lump" in her RUQ of her abdomen. She also notes some slight ankle pain this morning when ambulating, but that she feels it's just excess fluid in her joint. She has no other complaints at this time. Constitutional: no fever (noted a 1x "hot flash" overnight but temp was normal) and no chills Respiratory: no cough, no dyspnea and no wheezing Cardiovascular: + edema; no chest pain, no dyspnea, no dyspnea on exertion and no calf pain Breast: + breast pain (nipple pain) Gastrointestinal: + abdominal pain (RUQ pain, improving ); no nausea and no vomiting Genitourinary (female): no dysuria Neurologic: no headache(s) Physical Exam <Bishop BreenDO sammi - Last Filed: 07/02/19 06:48> Constitutional WD/WN, vitals as above Respiratory normal respiratory effort, lungs clear to auscultation Cardiovascular Rate/Rhythm: regular rate and regular rhythm Heart Sounds: normal S1 and normal S2; no click, no gallop, no murmur and no cardiac rub Extremities: + edema (+1); no calf tenderness Gastrointestinal (Abdomen) Inspection/Auscultation: abdomen normal to inspection, normal bowel sounds and + abdominal surgical incision (Clean and Dry, No Pus noted. ) Percussion/Palpation: + abdomen tender (Slightly tender to palpation of lower abdominal quadrants) and abdomen soft Musculoskeletal L ankle slightly TTP on the anteromedial joint line. Genitourinary OB Exam Abdomen: + fundal height Fundus: + firm and + relation to umbilicus (1 cm below); not tender and not boggy Results & Data <Bishop Oates DO - Last Filed: 07/02/19 06:48> Vital Signs (Past 12 Hours) Vital Signs Temp Pulse Resp BP Pulse Ox 07/01/19 23:45 36.9 C 95 H 16 114/62 98 07/01/19 19:25 36.6 C 78 20 119/65 98 Medications Administered Current Inpatient Medications Benzocaine (Dermoplast Pain Relieving [place]) 1 appln EXT UD PRN PRN Reason: use on skin as needed Stop: 07/29/19 09:58 Bisacodyl (Dulcolax) 10 mg TX PRN PRN PRN Reason: Constipation Stop: 07/31/19 09:07 Cocaine HCl (Supercream 0.870%) 1 gm EXT UD PRN PRN Reason: hemmorrhoidal inflammation Stop: 07/13/19 09:58 Diphenhydramine HCl (Benadryl) 25 mg IV QID PRN PRN Reason: Itching Stop: 07/29/19 09:58 Diphenhydramine HCl (Benadryl Capsule) 25 mg PO QID PRN PRN Reason: Itching Stop: 07/29/19 09:58 Docusate Sodium (Colace) 100 mg PO DAILY@08,21 [facility] Stop: 07/29/19 20:59 Last Admin: 07/01/19 20:11 Dose: 100 mg Documented by: Ferrous Sulfate (Feosol) 325 mg PO DAILY@08 [facility] Stop: 07/30/19 07:59 Last Admin: 07/01/19 08:43 Dose: 325 mg Documented by: Hydrocortisone (Anusol Hc) 25 mg TX BID PRN PRN Reason: Hemorrhoids Stop: 07/29/19 09:58 Lactated Ringer's (Lr) 1,000 mls @ 125 mls/hr IV .Q8H RONALDO Stop: 07/29/19 09:58 Promethazine HCl 25 mg/ Sodium (Chloride) 51 mls @ 204 mls/hr IV Q4H PRN PRN Reason: Nausea And Vomiting Stop: 07/29/19 09:58 Oxytocin 20 units/ Lactated (Ringer's) 1,002 mls @ 125 mls/hr IV .Q8H1M [facility] Stop: 07/29/19 09:58 Last Admin: 06/29/19 19:28 Dose: 125 mls/hr Documented by: Ibuprofen (Motrin) 600 mg PO Q4H PRN PRN Reason: Pain Stop: 07/29/19 09:58 Last Admin: 07/02/19 06:14 Dose: 600 mg Documented by: Ketorolac Tromethamine (Toradol) 30 mg IV Q6H PRN PRN Reason: Pain Stop: 07/04/19 09:58 Loratadine (Claritin) 10 mg PO [facility] Stop: 07/30/19 08:59 Last Admin: 07/01/19 08:42 Dose: 10 mg Documented by: Magnesium Hydroxide (Milk Of Magnesia) 30 ml PO HS PRN PRN Reason: Constipation Stop: 07/29/19 09:58 Ondansetron HCl (Zofran) 4 mg IV Q4H PRN PRN Reason: Nausea And Vomiting Stop: 07/29/19 09:58 Last Admin: 06/30/19 16:30 Dose: 4 mg Documented by: Oxycodone/Acetaminophen (Percocet 5mg/325mg) 1 - 2 tab PO Q4H PRN PRN Reason: Pain Stop: 07/13/19 09:58 Last Admin: 07/02/19 06:14 Dose: 1 tab Documented by: Prenat Multivit/[place]/Iron/Folic Ac ( Vitamin) 1 tab PO DAILY@08 [facility] Stop: 07/30/19 07:59 Last Admin: 07/01/19 08:43 Dose: 1 tab Documented by: Sennosides (Senokot) 17.2 mg PO HS PRN PRN Reason: Constipation Stop: 07/29/19 09:58 Sertraline HCl (Zoloft) 50 mg PO [facility] Stop: 07/30/19 08:59 Last Admin: 07/01/19 08:42 Dose: 50 mg Documented by: Simethicone (Mylicon) 80 mg PO DAILY@08,13,17,21 [facility]ON[facility] Stop: 07/29/19 12:59 Last Admin: 07/01/19 20:11 Dose: 80 mg Documented by: Zolpidem Tartrate (Ambien) 5 mg PO HS PRN PRN Reason: Sleep Stop: 07/29/19 09:58 <Luis Santos Jr, MD, FACOG - Last Filed: 07/02/19 07:27> Co-Signing Physician Notes Resident Physician Supervision Note: I was present with Dr. Oates during the history and exam. I discussed the case with the resident and agree with the findings and plan as documented in the note. Any exceptions or clarifications are listed here: No palpable mass in RUQ, patient appears to tense rectus muscle. Patient with skin reaction on abdomen, probably secondary to clothing. Will apply 1% hydrocortisone cream. F/u in 2 weeks for post-op check Documented By: Luis Santos Jr, MD, FACOG Resident Activity Tracking <Bishop Oates DO - Last Filed: 07/02/19 06:48> Resident Involvement: Resident Care Provided Care Provided: OB Delivery
[2019-07-02] MEDS: HYDROCORTISONE 1% CRM 30 GM TUBE EXT PRN (08:19)
[2019-07-02] MEDS: LORATADINE 10 MG TAB PO SCH (08:20)
[2019-07-02] MEDS: PRENATAL VITAMIN 1 TAB PO SCH (08:20)
[2019-07-02] MEDS: SERTRALINE HCL 50 MG TABLET PO SCH (08:20)
[2019-07-02] MEDS: FERROUS SULFATE 325 MG TAB PO SCH (08:20)
[2019-07-02] MEDS: DOCUSATE SODIUM 100 MG CAP PO SCH ×2 (08:20→21:07)
--- NOTE | 2019-07-02 10:18 | Discharge Summary ---
Date of Service July 02, 2019 Admission HPI Per Admitting Provider The patient is a 34-year-old 3 para 2 with an EDC is 06 July by first-trimester ultrasound who is admitted for repeat section with bilateral tubal ligation. This was a unplanned for the patient conceiving on oral contraceptive pills. While her 1st delivery was a vaginal delivery, her 2nd delivery was a primary section for breech presentation. Six months postoperatively the patient developed pain and had a diagnostic laparoscopy which showed adhesions and a small ventral wall hernia. The hernia was repaired with abdominal mesh. During this the patient was apprised of the risks benefits and alternatives to delivery and has opted for repeat section. The patient also desires permanent surgical sterilization. The patient's course was remarkable for an episode of colicky pain felt to be secondary to kidney stones. Patient did have an MRI which did not confirm the diagnosis. Renal colic pain her resolved. The patient's blood type is O positive, antibody negative, rubella immune, hepatitis B negative, she declined cell free DNA screening, she had a normal 1 hour Glucola x2, and a negative 3rd trimester beta strep culture. Admission Exam (Per Admitting) Constitutional WD/WN, vitals as above Respiratory normal respiratory effort, lungs clear to auscultation Auscultation: lungs clear to auscultation bilaterally Cardiovascular RRR, no murmur, no edema Extremities: no calf tenderness Gastrointestinal (Abdomen) Inspection/Auscultation: abdomen normal to inspection and + abdominal surgical incision (clean & dry) Percussion/Palpation: + abdomen tender (RUQ along rectus muscle) Neurologic patellar DTR's 2+ bilat, sensation intact Discharge Data Procedures Performed Operation Date: 06/29/19 07:30 Actual Procedures p Section in LD(Bilateral) - Luis Santos Jr, MD, [facility] [place] (1) History of delivery, antepartum: A viable male infant with Apgars of 8 and 9. Arterial and venous cord gases are pending. Normal appearing tubes and ovaries bilaterally. Bilateral tubal ligation performed with partial left salpingectomy for hemostatic control. Post- atony treated with intrauterine injections of both Methergine and Pitocin. Previous surgical mesh reapproximated during closure. Post operatively the patient did well. She was d/c'd home on POD #3 and will f/u in 2 weeks for post-operative check Discharge Instructions ACTIVITY RECOMMENDATIONS: * Gradual return to full activity over the next 2-3 weeks. * No lifting - nothing heavier than baby over the next 2-3 weeks. * Do not engage in vigorous exercise, sexual activity or sports until cleared by your physician. * Do not drive or operate any motorized equipment until cleared by your physician. * You may shower/bathe daily. MEDICATIONS: For discomfort or pain, you may use Acetaminophen (Tylenol), Ibuprofen (Advil), or Naproxen (Aleve) following the package directions. For constipation you may use Colace following the package directions. BREAST CARE: If you are not breast feeding: * Wear a supportive bra 24 hours a day for one to two weeks. * Avoid stimulating your breasts and nipples as much as possible during the first few weeks after delivery. * When taking a shower, have the warm water hit your back, not breasts. * When your breasts feel full, apply ice packs. Usually three to four times a day helps ease the discomfort. * Take a mild pain medication (Tylenol / Motrin) when you are uncomfortable. If breast feeding: * Use breast milk to lubricate nipples. Lansinoh cream may be used for sore nipples. You do not need to remove cream prior to breast feeding. If using a different brand of cream, check the label for directions regarding removal of cream prior to nursing. * Wear a supportive bra. * If having problems with breasts or breast feeding, call a communication consultant or your health care provider. SPECIAL CARE INSTRUCTIONS: When you are discharged from the hospital, it is important for you to follow the instructions listed below: * During the first week at home, you should be able to care for yourself and your baby. In addition, the usual light household activities are encouraged. * Limit your activities to the way you feel. Do not try to clean the house or move furniture. Be sensible. * If you actively engage in sports and have done so up until the time of your delivery, you may resume these activities as soon as you feel able. This may take up to one month or even longer. Use good judgment. * Continue to take your vitamins for at least six weeks after the of your baby. * Your diet need not be limited unless you were on a special diet before your delivery. Breast-feeding mothers need around 2500 calories per day and at least 64-80 ounces of fluid per day (8 to 10 glasses). * You should eat foods from the four major food groups. Crash diets or fad diets are to be avoided. Eating lean meats, fresh fruits and vegetables, low-fat dairy products, high fiber foods and a regular exercise program, will help you get back to your pre- weight without putting your health at risk. * Constipation is sometimes a problem after delivery. Take a mild laxative as needed. If breast feeding, Milk of Magnesia is acceptable to use. You may use a suppository or Fleets enema. * A daily shower or tub bath is suggested. Wash incision daily with warm soapy water and pat dry. It doesn't need to be covered unless drainage is present. * A bloody vaginal discharge will usually continue until around four weeks . A small amount of bleeding may continue for as long as six weeks. Vaginal discharge changes from the bright red bleeding after delivery to pink then brownish and finally yellowish-pink before becoming white and disappearing. * Bleeding may increase with activity. Your first period may come in 4-8 weeks. If you are breast feeding, your period may be delayed even longer. * [place] (sex) can begin whenever both you and your partner feel comfortable and do not have any form of genital infection. It is recommended that you wait at least six weeks for internal and external healing to occur. If you have questions, please talk to your health care practitioner. A condom should be used to prevent infection and . * Foreplay, gentle intercourse and lubrication is very important the first several times to prevent pain. A water-based lubricant such as K-Y jelly or Astroglide may be used. * If you have RH negative blood and your baby is RH positive, you will receive RHOGAM by injection prior to discharge. The nurse will give you a card to keep with you that has the date and place that you received RHOGAM after delivery. * During your care, you had a Rubella screen done to check for the presence of rubella antibodies in your blood. If your test was negative, you will receive a Rubella vaccine prior to discharge. This vaccine may cause a fever, soreness at the injection site and flu-like symptoms. If these symptoms persist, notify your health care practitioner. is not advised for one month after a Rubella vaccine. * Verbalizes understanding of car seat law as reviewed with patient nursing. * Car Seat hand-out given and reviewed with patient by nursing. * Shaken baby information reviewed with patient by nursing. Call you doctor if: * Heavy bleeding (saturating several pads an hour) or passing clots the size of your fist. * A fever >101 degrees F (38.3 degrees C) on two occasions four hours apart and/or chills. * Unusual pain in the pelvic or vaginal areas. * Call the doctor for any increased redness, drainage or swelling around the incision and any pain unrelieved by prescribed pain medication. * "Baby Blues" lasting longer than two weeks. If you have any questions or concerns, call your health care practitioner at . FOLLOW UP VISIT: * Please call the office at to schedule a 6 week examination. It is important you keep this appointment. It is important for you to make arrangements for either yearly or twice yearly check-ups thereafter.
--- NOTE | 2019-07-02 13:05 | Communication Note ---
Date of Service: July 02, 2019 Patient noted to RN that she has a new bump in her umbilicus that is very painful and she is concerned for new umbilical hernia. I came to see her. She is tolerating diet well, no nausea or emesis, no fever or chills, pain at surgical site well controlled. She was planned for discharge home today, but states she now has new onset of a lump in her umbilicus that is too painful to touch and she is unsure if it's OK to go home. She has a history of painful hernia in her scar in 2016 that was ultimately resolved with placement of mesh; she is worried that is happening again but in a different place this time. Exam: VSS No acute distress, sitting up eating food tray Cor: RRR Lungs: Nonlabored breathing, fluid speech Abd: postgravid, soft. Umbilicus normal in appearance and pulled normally inward without an apparent bulge. On palpation around this area there is a "nodule" about 1cm and extremely TTP to the right of the umbilicus. Patient barely tolerates touch on the skin in this area let alone significant pressure. I'm unable to try to reduce this nodule into the abdomen due to poor patient tolerance. Midline of inferior abdomen is without significant diastasis and her incision is C/D/I. I note in operative report that [place] cut, then reapproximated with silk suture, a sheet of mesh in the midline lower abdomen consistent with patient's history of repair in 2016. A/P: Patient was discharged but will reverse that order for now, and ask general surgery to consult to determine the presence of hernia and plan of care if any. Discussed with patient that umbilical bulge or herniation is not uncommon after due to natural diastasis recti. However, the tenderness and acute onset of her palpable lump is concerning for me. It seems unlikely she would have incarcerated bowel and still have good appetite, but perhaps there is omentum or epiploicae becoming strangulated and causing her pain? Will appreciate gen surg input.
[2019-07-02] MEDS: SIMETHICONE 80 MG CHEW PO SCH ×5 (13:16→21:07)
--- NOTE | 2019-07-02 14:40 | Communication Note ---
Date of Service: July 02, 2019 Catch up documentation: I discussed this patient by phone with Dr. Trujillo immediately after writing my last note. He is involved in an appendectomy on another patient today as well, but he was available by phone immediately to get things started with Katherin's consult. He suggested we start with CT scan; we will notify him as soon as it is completed, and then he will review and then see patient. CT ordered after determining the most appropriate type, and weatherseal technician called to discuss that PO prep will need about 2 hours to get into the relevant portion of the small bowel. Patient's RN also aware of the above in real time. Currently waiting for prep to move down the gut before imaging.
[2019-07-02] MEDS ORDERED: IOVERSOL 100ml IV PRN (17:28)
--- NOTE | 2019-07-02 17:30 | CT Scan Report ---
CT abd pelvis oral and IV con CLINICAL HISTORY: 34 years-old Female presenting with recent section on [place], now with mid abdominal pain. TECHNIQUE: Multidetector CT of the abdomen and pelvis was performed after the administration of oral and intravenous contrast. IV contrast: 92 mL of Optiray 320. One or more dose lowering techniques wer e used consistent with the principles of ALARA (as low as reasonably achievable), including automatic exposure control, mA or kV adjustment to individual patient size, and/or use of iterative reconstruc tion. COMPARISON: 12/11/2014. CT DOSE (mGy.cm): The estimated cumulative dose is 852.34 mGy.cm. 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 Lung bases: Normal heart size. No pericardial or pleural effusion. Minimal dependent changes likely a telectasis. Liver: Normal morphology. No liver lesion. Patent hepatic vasculature. Biliary: No intrahepatic or extrahepatic biliary ductal dilatation. Normal gallbladder. Pancreas: Normal. Spleen: Normal. Adrenal glands: Normal. Kidneys and ureters: Mild left pelvocaliectasis and mild distention of the left ureter. Normal enhanc ement of the kidneys. The distal left ureter is nondistended. There is no gross evidence of a uretera l calculus. No nephrolithiasis. Bladder: Incompletely evaluated secondary to underdistention. Pelvic organs: Uterus is enlarged with trace gas in the lower uterine segments compatible with postsu rgical changes of section. Postsurgical changes are evident anterior to the uterus with smal l volume fluid and fat infiltration. Ovaries are normal. Bowel: Mild stool burden throughout the colon, which is normal in caliber. No bowel obstruction. The appendix is not visualized. Peritoneal cavity: Fluid and fat infiltration in the anterior superior pelvis likely within the space of Retzius compatible with postsurgical change. Trace free intraperitoneal fluid. No free intraperit lanier gas. Lymph nodes: No enlarged lymph nodes in the abdomen or pelvis. Vasculature: Aorta and IVC patent and normal in caliber. Abdominal wall: Evidence of a Pfannenstiel incision with fluid in the incision site as well as foci o f gas. Gas tracks along the lateral abdominal wall primarily on the right. Surrounding nonspecific raias bcutaneous fat infiltration in the anterior abdominal wall diffusely as well as in the proximal lower extremities. Musculoskeletal: Normal. IMPRESSION: 1. Postsurgical changes of the tendon still incision with section. The degree of inflammato ry change and associated fluid anterior to the uterus may be expected in the post surgical setting.. Fluid and inflammatory change along the with foci of gas may also be within the expected range of nor mal in the postsurgical setting. 2. uterus. 3. Mild diffuse stool burden suggests constipation. No bowel obstruction. 4. Mild left hydroureteronephrosis without obstructing calculus. This is likely a residual effect of hydronephrosis of and presumably will spontaneously resolved. Electronically signed by: Bennie Whittaker M.D. 07/02/2019 5:22 PM
--- NOTE | 2019-07-02 22:08 | Surgery Consultation ---
Date of Consultation July 02, 2019 Assessment & Plan (1) Umbilical pain: This patient has pain with a probable umbilical hernia. This was not mentioned in the CT scan will review that with radiology tomorrow. I explained the options to the patient would include surgical repair of the hernia. This is most likely too small to use mesh. There is no evidence of bowel within the hernia to my interpretation. There is most likely some fat that may have become incarcerated or strangulated. I explained that the pain from this would eventually resolved. She is unsure as to whether or not she wants another surgical procedure at this time. She is going to think about her overnight and discuss it with her . She will let us know her decision in the morning and move forward accordingly. History of Present Illness Reason for Consultation: Umbilical pain Requesting Physician: Janae Sandoval MD Attending Physician: Luis Santos Jr, MD, FACOG History of Present Illness I have been asked by Dr. Sandoval to see this 34-year-old female for evaluation of umbilical pain. The patient underwent a 3 days ago. She was recovering well until this morning when she developed pain that she described as sharp and stabbing in the umbilical region. She had not had pain like this before. She states that there is a "nodule" in an area that when you palpate it causes increase in the pain to about a 10 out of 10. She has never noted an umbilical hernia before. She had a with her second child after which she required a laparoscopic repair of a hernia related to her Pfannenstiel incision. Her only surgery in the umbilical area was a port site used for the laparoscopic hernia repair. She has some mild nausea when the pain is at its apex. She states the pain is worse when she standing. She has not vomited however. Her bowels have been moving normally. She denies melena and hematochezia. She thinks her temperature has been elevated but on routine measurements she has not had a temperature elevation. Allergies Allergy/AdvReac Type Severity Reaction Status Date / Time No Known Drug Allergies Allergy Verified 06/28/19 14:59 blue chucks Allergy skin Uncoded 06/28/19 15:56 irritation with blue chucks with prior c/s Home Medications Home Medications Medication Instructions Recorded Confirmed Type loratadine 10 mg PO QAM 01/12/19 06/29/19 History sertraline 50 mg PO QAM 01/12/19 06/29/19 History 1 tab PO DAILY 05/28/19 06/29/19 History vitamin,calcium,tlrxuodl-yziw-jyxhm acid tablet diphenhydramine HCl 25 mg PO HS PRN 06/06/19 06/29/19 History ibuprofen 600 mg PO Q6H PRN #30 tab 07/01/19 Rx oxycodone-acetaminophen [Percocet] 1 - 2 tab PO Q4H PRN #14 tab 07/01/19 Rx hydrocortisone 1 applic EXT QID PRN #30 gm 07/02/19 Rx Patient History Medical History Anxiety History of kidney stones Temporomandibular joint disorder occasional clicking; no locking Obesity Surgical History H/O laparoscopy H/O ventral hernia repair History of sinus surgery Hx of section 06/04/16 (breech): SAB x3 at L3-L4 at [facility], [place]; patient states she has unilateral numbness initially but it did distribute evenly eventually. She also states that she had significant pain toward end of c/s Second 06/29 Family History Mother Diabetes Grandmother (Maternal) Hypertension Diabetes Grandmother (Paternal) Hypertension Diabetes Father Pancreas cancer Prostate cancer Grandfather (Maternal) Diabetes Grandfather (Paternal) Diabetes Social History Preferred Language: Luxembourgish Communication Ability: Effective Pricing Manager Required: No Beliefs That Will Affect Care: None marital status: Current Living Situation: Family Current Living Situation Comment: Lives with , 2 daughters, and a dog. Other Information That Helps Us Care for You: No Feels Safe at Home: Yes Safety Concerns: Feels Safe At This Time Smoking Status: Never smoker Do You Dip or Chew Tobacco: No ; Second Hand Exposure: No ; Tobacco Cessation Education Requested by Patient: No Hx Alcohol Use: No Hx Substance Use: No Review of Systems Review of Systems: All systems reviewed & are unremarkable except as noted in HPI & below Physical Exam Constitutional: no acute distress Respiratory: normal respiratory effort, lungs clear to auscultation Cardiovascular: Rate/Rhythm: regular rate and regular rhythm Gastrointestinal (Abdomen): Inspection/Auscultation: normal bowel sounds; abdomen not distended Percussion/Palpation: + abdomen tender (Palpation directly in the umbilicus where there is a very small protruding probable hernia) and abdomen soft Skin: + rash (Papillary rash with red and slightly raised throughout her abdominal wall) Results & Data Vital Signs (Past 12 Hours) Vital Signs Temp Pulse Resp BP Pulse Ox 07/02/19 15:40 36.7 C 81 20 118/[address] abd pelvis oral and IV con CLINICAL HISTORY: 34 years-old Female presenting with recent section on Tuesday, now with mid abdominal pain. TECHNIQUE: Multidetector CT of the abdomen and pelvis was performed after the administration of oral and intravenous contrast. IV contrast: 92 mL of Optiray 320. One or more dose lowering techniques were used consistent with the principles of ALARA (as low as reasonably achievable), including automatic exposure control, mA or kV adjustment to individual patient size, and/or use of iterative reconstruction. COMPARISON: 12/11/2014. CT DOSE (mGy.cm): The estimated cumulative dose is 852.34 mGy.cm. FINDINGS: Oral Health Therapist topogram: Unremarkable. Lung bases: Normal heart size. No pericardial or pleural effusion. Minimal dependent changes likely atelectasis. Liver: Normal morphology. No liver lesion. Patent hepatic vasculature. Biliary: No intrahepatic or extrahepatic biliary ductal dilatation. Normal gallbladder. Pancreas: Normal. Spleen: Normal. Adrenal glands: Normal. Kidneys and ureters: Mild left pelvocaliectasis and mild distention of the left ureter. Normal enhancement of the kidneys. The distal left ureter is nondistended. There is no gross evidence of a ureteral calculus. No neph rolithiasis. Bladder: Incompletely evaluated secondary to underdistention. Pelvic organs: Uterus is enlarged with trace gas in the lower uterine segments compatible with postsurgical changes of section. Postsurgical changes are evident anterior to the uterus with small volume fluid and fat infiltration. Ovaries are normal. Bowel: Mild stool burden throughout the colon, which is normal in caliber. No bowel obstruction. The appendix is not visualized. Peritoneal cavity: Fluid and fat infiltration in the anterior superior pelvis likely within the space of Retzius compatible with postsurgical change. Trace free intraperitoneal fluid. No free intraperitoneal gas. Lymph nodes: No enlarged lymph nodes in the abdomen or pelvis. Vasculature: Aorta and IVC patent and normal in caliber. Abdominal wall: Evidence of a Pfannenstiel incision with fluid in the incision site as well as foci of gas. Gas tracks along the lateral abdominal wall primarily on the right. Surrounding nonspecific subcutaneous fat infiltration in the anterior abdominal wall diffusely as well as in the proximal lower extremities. Musculoskeletal: Normal. IMPRESSION: 1. Postsurgical changes of the tendon still incision with section. The degree of inflammatory change and associated fluid anterior to the uterus may be expected in the post surgical setting.. Fluid and inflammatory change along the with foci of gas may also be within the expected range of normal in the postsurgical setting. 2. uterus. 3. Mild diffuse stool burden suggests constipation. No bowel obstruction. 4. Mild left hydroureteronephrosis without obstructing calculus. This is likely a residual effect of hydronephrosis of and presumably will spontaneously resolved.
[2019-07-03] MEDS: OXYCODONE/ACETAMINOPHEN 5mg/325mg TAB PO PRN ×3 (04:54→12:15)
[2019-07-03] MEDS: IBUPROFEN 600 MG TAB PO PRN ×3 (04:54→12:15)
--- NOTE | 2019-07-03 06:23 | Obstetrical Progress Note ---
Date of Service <Bishop Breensammi - Last Filed: 07/03/19 06:29> July 03, 2019 Assessment & Plan <Bishop BreenDO sammi - Last Filed: 07/03/19 06:29> (1) History of delivery, antepartum: -POD#4 -Vitals reviewed, WNL (Tmax 36.9) - GBS -, Blood Type O+ - Clinically stable. - Feels improved today. Eating well, voiding well, ambulating well. - Pain well controlled. - Routine post care - Discussion with General surgery about ?umbilical hernia held. - Patient interested in D/C at this time and will return if symptoms worsen. - Patient counseled on D/C, medications filled, follow up appointment discussed. Day #:: 4 Subjective <Bishop BreenDO sammi - Last Filed: 07/03/19 06:29> Ambulation: ambulating normally Voiding: no voiding problems Passing Gas:: No Diet Tolerance:: regular diet Lochia:: Small Feeding Type:: breast feeding (supplementing with formula) Current Pain Level(1-10): 2 (pain improves with analgesics) Patient is a 34 POD#4. Patient states that she improving, and that most of her pain is primarily abdominal today around the umbilical region. She states she spoke with general surgery last night and that there was a discussion between having surgery now while in the hospital vs later if her symptoms worsen. Patient states this morning that she would like to put off the surgery at this point in time. Constitutional: no fever and no chills Respiratory: no cough, no dyspnea and no wheezing Cardiovascular: + edema; no chest pain, no dyspnea, no dyspnea on exertion and no calf pain Breast: no breast pain Gastrointestinal: + abdominal pain and + nausea (secondary to pain ); no vomiting Genitourinary (female): no dysuria Neurologic: no headache(s) Physical Exam <Bishop WynnDO talisha Ceci Last Filed: 07/03/19 06:29> Constitutional WD/WN, vitals as above Respiratory normal respiratory effort, lungs clear to auscultation Cardiovascular Rate/Rhythm: regular rate and regular rhythm Heart Sounds: normal S1 and normal S2; no click, no gallop, no murmur and no cardiac rub Extremities: + edema (+1); no calf tenderness Gastrointestinal (Abdomen) Inspection/Auscultation: normal bowel sounds and + abdominal surgical incision (Clean and Dry, No Pus noted. ); + abdomen abnormal to inspection (Patient has a slight rash along the lateral midline of her abdomen) Percussion/Palpation: + abdomen tender (Tender to palpation surrounding the umbilicus ) and abdomen soft Genitourinary OB Exam Abdomen: + fundal height Fundus: + firm and + relation to umbilicus (2 cm below); not tender and not boggy Results & Data <Bishop Oates DO - Last Filed: 07/03/19 06:29> Vital Signs (Past 12 Hours) Vital Signs Temp Pulse Resp BP Pulse Ox 07/03/19 04:30 36.6 C 70 20 117/69 97 07/02/19 23:25 36.3 C L 64 20 116/64 96 Medications Administered Current Inpatient Medications Benzocaine (Dermoplast Pain Relieving [place]) 1 appln EXT UD PRN PRN Reason: use on skin as needed Stop: 07/29/19 09:58 Bisacodyl (Dulcolax) 10 mg [place] PRN PRN PRN Reason: Constipation Stop: 07/31/19 09:07 Cocaine HCl (Supercream 0.870%) 1 gm EXT UD PRN PRN Reason: hemmorrhoidal inflammation Stop: 07/13/19 09:58 Diphenhydramine HCl (Benadryl) 25 mg IV QID PRN PRN Reason: Itching Stop: 07/29/19 09:58 Diphenhydramine HCl (Benadryl Capsule) 25 mg PO QID PRN PRN Reason: Itching Stop: 07/29/19 09:58 Last Admin: 07/02/19 23:22 Dose: 25 mg Documented by: Docusate Sodium (Colace) 100 mg PO DAILY@08, [facility] Stop: 07/29/19 20:59 Last Admin: 07/02/19 21:07 Dose: 100 mg Documented by: Ferrous Sulfate (Feosol) 325 mg PO DAILY@08 [facility] Stop: 07/30/19 07:59 Last Admin: 07/02/19 08:20 Dose: 325 mg Documented by: Hydrocortisone (Anusol Hc) 25 mg [place] BID PRN PRN Reason: Hemorrhoids Stop: 07/29/19 09:58 Hydrocortisone (Hydrocortisone 1%) 1 appln EXT QID PRN PRN Reason: Rash Stop: 08/01/19 07:25 Last Admin: 07/02/19 08:19 Dose: 1 appln Documented by: Lactated Ringer's (Lr) 1,000 mls @ 125 mls/hr IV .Q8H RONALDO Stop: 07/29/19 09:58 Promethazine HCl 25 mg/ Sodium (Chloride) 51 mls @ 204 mls/hr IV Q4H PRN PRN Reason: Nausea And Vomiting Stop: 07/29/19 09:58 Oxytocin 20 units/ Lactated (Ringer's) 1,002 mls @ 125 mls/hr IV .Q8H1M [facility] Stop: 07/29/19 09:58 Last Admin: 06/29/19 19:28 Dose: 125 mls/hr Documented by: Ibuprofen (Motrin) 600 mg PO Q4H PRN PRN Reason: Pain Stop: 07/29/19 09:58 Last Admin: 07/03/19 04:54 Dose: 600 mg Documented by: Ioversol (Optiray 320 100ml) 92 ml IV ONCE PRN PRN Reason: Interaction Checking Stop: 07/06/19 17:27 Last Admin: 07/02/19 17:29 Dose: 1 ml Documented by: Ketorolac Tromethamine (Toradol) 30 mg IV Q6H PRN PRN Reason: Pain Stop: 07/04/19 09:58 [facility]atad[facility] ([facility]) [facility] Stop: 07/30/19 08:59 Last Admin: 07/02/19 08:20 Dose: 10 mg Documented by: Magnesium Hydroxide (Milk Of Magnesia) 30 ml PO HS PRN PRN Reason: Constipation Stop: 07/29/19 09:58 Ondansetron HCl (Zofran) 4 mg IV Q4H PRN PRN Reason: Nausea And Vomiting Stop: 07/29/19 09:58 Last Admin: 06/30/19 16:30 Dose: 4 mg Documented by: Oxycodone/Acetaminophen (Percocet 5mg/325mg) 1 - 2 tab PO Q4H PRN PRN Reason: Pain Stop: 07/13/19 09:58 Last Admin: 07/03/19 04:54 Dose: 1 tab Documented by: Prenat Multivit/[place]/Iron/Folic Ac ( Vitamin) 1 tab PO DAILY@08 [facility] Stop: 07/30/19 07:59 Last Admin: 07/02/19 08:20 Dose: 1 tab Documented by: Sennosides (Senokot) 17.2 mg PO HS PRN PRN Reason: Constipation Stop: 07/29/19 09:58 Sertraline HCl (Zoloft) 50 mg PO QAM [facility] Stop: 07/30/19 08:59 Last Admin: 07/02/19 08:20 Dose: 50 mg Documented by: Simethicone (Mylicon) 80 mg PO DAILY@08,13,17,21 [facility] Stop: 07/29/19 12:59 Last Admin: 07/02/19 21:07 Dose: 80 mg Documented by: Zolpidem Tartrate (Ambien) 5 mg PO HS PRN PRN Reason: Sleep Stop: 07/29/19 09:58 <Janae Sandoval MD - Last Filed: 07/03/19 06:54> Co-Signing Physician Notes I have reviewed the resident's note and examined the patient myself, and agree with the note above. Resident Activity Tracking <Bishop Oates DO - Last Filed: 07/03/19 06:29> Resident Involvement: Resident Care Provided Care Provided: OB Delivery
[2019-07-03] MEDS: PRENATAL VITAMIN 1 TAB PO SCH (08:40)
[2019-07-03] MEDS: FERROUS SULFATE 325 MG TAB PO SCH (08:40)
[2019-07-03] MEDS: SIMETHICONE 80 MG CHEW PO SCH ×2 (08:40→12:15)
[2019-07-03] MEDS: DOCUSATE SODIUM 100 MG CAP PO SCH (08:40)
[2019-07-03] MEDS: HYDROCORTISONE 1% CRM 30 GM TUBE EXT PRN (08:51)
--- NOTE | 2019-07-03 08:58 | Surgery Progress Note ---
Date of Service July 03, 2019 Assessment & Plan (1) Umbilical pain: This patient has pain with a probable umbilical hernia. There is most likely some fat that may have become incarcerated or strangulated. No evidence of bowel involvement per my read on CT scan. Dr. Trujillo explained that the pain from this would eventually resolve. She wants to avoid another surgical procedure at this time. If her abdominal pain gets worse or notices difficulty eating/drinking she is to call office to discuss surgical options. Patient understood. Dr. Trujillo has seen and examined pt, agrees with above. Subjective still having pain, worse today than yesterday but was up multiple times last night feeding her baby and moving alot in bed no n/v would like to wait for next few days, if pain gets worse she will call office Physical Exam Constitutional: WD/WN, vitals as above no acute distress Gastrointestinal (Abdomen): Inspection/Auscultation: abdomen normal to inspection; abdomen not distended Percussion/Palpation: + abdomen tender (lower abdomen above ) and abdomen soft; no guarding and abdomen not rigid Skin: no rashes, warm and dry Psychiatric: A+Ox3, euthymic affect Results & Data Vital Signs (Past 12 Hours) Vital Signs Temp Pulse Resp BP Pulse Ox 07/03/19 07:43 37 C 81 18 110/70 96 07/03/19 04:30 36.6 C 70 20 117/69 97 07/02/19 23:25 36.3 C L 64 20 116/64 96
[2019-07-03] MEDS: LORATADINE 10 MG TAB PO SCH (10:26)
[2019-07-03] MEDS: SERTRALINE HCL 50 MG TABLET PO SCH (10:26)
== END 2019-07-03 13:35 | disposition home or self-care (01) | DRG 785 ==
LOC: 4S1 05:46 → EDSTATUS 07:30 → 4S2 11:45

== ENCOUNTER 2022-10-11 10:17 | Observation (INO) ==
[2022-10-11] MEDS ORDERED: dexAMETHasone**PF** 10 MG/ML VIAL IV ONE (10:52)
[2022-10-11] MEDS ORDERED: ONDANSETRON INJ 2 MG/ML 2 ML VIAL IV STA (10:52)
[2022-10-11] MEDS ORDERED: SODIUM CHLORIDE 0.9% 1000ML 1,000 ML IV SCH (11:00)
[2022-10-11] MEDS: KETOROLAC TROMETHAMINE 15 MG/ML VIAL IV PRN ×2 (11:03→16:55)
[2022-10-11 11:24] LABS: Basophils # (auto) 0.05 K/uL (0-0.2); Basophils % (auto) 0.7 %; Eosinophils % (auto) 2.8 %; Hematocrit (blood only) 41.1 % (34.1-44.9); Hemoglobin 14.4 g/dl (12.0-16.0); Immature Granulocytes # (auto) 0.05 K/uL (0.00-0.02); Immature Granulocytes % (auto) 0.7 %; Lymphocytes # (auto) 2.22 K/uL (1.2-3.4); Lymphocytes % (auto) 31.2 %; Mean Corpuscular Hemoglobin 32.7 pg (25.0-34.0); Mean Corpuscular Volume 93.2 fL (80.0-100.0); Mean Platelet Volume 10.4 fL (9.4-12.3); Monocytes # (auto) 0.48 K/uL (0.24-0.82); Monocytes % (auto) 6.8 %; Neutrophils # (auto) 4.11 K/uL (1.4-6.5); Neutrophils % (auto) 57.8 %; Platelet Count 219 K/uL (130-400); RDW Standard Deviation 41.4 fL (36.4-46.3); Red Blood Count 4.41 M/uL (3.93-5.22); White Blood Count 7.11 K/ul (4.8-10.8)
[2022-10-11 11:26] LABS: Appearance Urine Clear (Clear); Bilirubin Urine Negative (Negative); Blood Urine Negative (Negative); Color Urine Yellow; Glucose Urine UA Negative (Negative); Ketones Urine Negative (Negative); Leukocyte Esterase Urine Negative (Negative); Nitrite Urine Negative (Negative); Protein Urine Negative (Negative); Specific Gravity Urine 1.006 (1.000-1.030); Urobilinogen Urine Negative (Negative)
[2022-10-11 11:52] LABS: Albumin Globulin Ratio 1.8 (0.9-2); Albumin Level 4.5 gm/dl (3.4-5.0); BUN Creatinine Ratio 16.7 (10-20); Bilirubin,Total 0.5 mg/dl (0.2-1.0); Creatinine Clr Calc Pharmacy 108.2 ml/min; Est GFR (African American) 114.2 ml/min; Est GFR (Non-African American) 98.5 ml/min; Globulin 2.5 gm/dl (2.5-4.0); Potassium 3.9 mmol/L (3.5-5.1)
--- NOTE | 2022-10-11 13:18 | Emergency Department Note ---
History of Present Illness General Chief complaint: Headache Stated complaint: HEADACHE, NUMBNESS IN HANDS Time Seen by Provider: 10/11/22 12:31 History of Present Illness Maximum Pain Intensity: 4 This is a 37-year-old female who presents with symptoms that have worsened over the past 1 to 2 weeks. She endorses a constellation of symptoms involving intermittent headaches, located bilaterally and pushing behind both of her eyes with associated photophobia. Today when she was driving she noticed a dark spot or shadow located in the right upper outer quadrant of her right eye. She has developed progressive weakness and shaking in her right hand. 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 This morning all of her fingertips and toes felt numb. She states that she could have stuck herself with a needle and would not have felt it. Today when she was trying to get out of her car her legs felt weak, and a coworker noticed this and asked if she was okay. She does state the weakness and tremor started in the upper extremities before the lower extremities Patient also endorses intermittent episodes where she is speaking and she loses track of what she was saying. Has been following with her primary care provider for the symptoms. Was recently started on Topamax and Imitrex as needed 2 weeks ago for presumed migraine headaches. She states the Topamax did improve her headaches a little bit but the Imitrex does not help. Patient feels like she cannot function at home at this point. She endorses a history of self-described migraine headaches that were normally located on the right side behind her right eye. This was accompanied by nausea and photophobia. She normally took [id number] medications, slept in a dark room, and symptoms spontaneously resolved. The symptoms she is experiencing today feel completely different. She does have an MRI of her brain scheduled 2 days from now on an outpatient basis, ordered by her primary care provider. She denies any fevers, chest pain, shortness of breath, vomiting, back pain, loss of bowel or bladder function. Has had a little bit of intermittent nausea. Headache and photophobia improved with Toradol, Zofran, and Decadron while in the emergency department waiting room. Headache now 3 out of 10. No personal or family history of MS. Home Medications Medication Instructions Recorded Confirmed Type albuterol sulfate 90 mcg/actuation 2 puff inhalation Q4H PRN Cough 10/11/22 10/11/22 History aerosol inhaler (Proventil HFA) azelastine 137 mcg (0.1 %) nasal 2 spray intranasal QAM 10/11/22 10/11/22 History spray aerosol buspirone 10 mg tablet 30 mg PO QPM 10/11/22 10/11/22 History cholecalciferol (vitamin D3) 50 50 mcg PO QPM 10/11/22 10/11/22 History mcg (2,000 unit) tablet fluticasone furoate 27.5 1 spray intranasal BID 10/11/22 10/11/22 History mcg/actuation nasal spray,suspension (Flonase Sensimist) multivitamin with minerals 1 cap PO QPM 10/11/22 10/11/22 History sertraline 100 mg tablet 200 mg PO QPM 10/11/22 10/11/22 History ondansetron 4 mg disintegrating 4 mg PO DAILY PRN nausea and 10/12/22 Rx tablet vomiting 14 days #14 tabs propranolol 60 mg capsule,24 60 mg PO QAM #30 caps 10/12/22 Rx hr,extended release sumatriptan succinate 50 mg tablet 50 mg PO UD PRN migraine headache 10/12/22 Rx #15 tabs topiramate 50 mg tablet 50 mg PO BID #60 tabs 10/12/22 Rx Allergies Allergy/AdvReac Type Severity Reaction Status Date / Time No Known Drug Allergies Allergy Verified 10/11/22 17:08 blue chucks Allergy skin Uncoded 10/11/22 17:08 irritation with blue chucks with prior c/s Past Med/Surg History Medical History Anxiety Asthma (12/22/12) Cystic fibrosis carrier, antepartum History of kidney stones Obesity Temporomandibular joint disorder occasional clicking; no locking Surgical History H/O laparoscopy H/O ventral hernia repair History of sinus surgery Hx of section 06/04/16 (breech): SAB x3 at L3-L4 at [facility]; patient states she has unilateral numbness initially but it did distribute evenly eventually. She also states that she had significant pain toward end of c/s Second 06/29 Family History Mother Diabetes Grandmother (Maternal) Hypertension Diabetes Grandmother (Paternal) Hypertension Diabetes Father Pancreas cancer Prostate cancer Grandfather (Maternal) Diabetes Grandfather (Paternal) Diabetes Social History Smoking Status: Never smoker Second Hand Exposure: No; Hx Alcohol Use: Yes Alcohol type: wine Hx Substance Use: No Preferred Language: Citizen Of [place] Communication Ability: Effective Travel Rn Required: No Beliefs That Will Affect Care: None marital status: Current Living Situation: Family Current Living Situation Comment: Lives with , 2 daughters, and a dog. Feels Safe at Home: Yes Assistive Devices: None Review of Systems See HPI for pertinent positives & negatives. and A total of 10 systems reviewed and were otherwise negative Physical Exam Vital Signs Vital Signs - 24 hr 10/11/22 10:45 10/11/22 12:35 10/11/22 16:24 Temperature 98.4 F Temperature Source Temporal Artery Scan Pulse Rate 66 Pulse Rate [Apical] 64 75 Respiratory Rate 16 18 16 Respiratory Effort / Characteristics Non-Labored Spontaneous Respiratory Depth Normal Respiratory Pattern Regular Blood Pressure 137/94 Blood Pressure [Left Arm] 110/77 114/70 Blood Pressure Mean 108 Blood Pressure Mean [Left Arm] 88 84 Blood Pressure Position Sitting Pulse Oximetry 99 97 97 Oxygen Delivery Method Room Air Sepsis Recent Fever Within 48 Hours No Sepsis New/Unexplained Change in Mental Status No Sepsis Action Taken by Nursing No Action Required CONSTITUTIONAL: Well developed, well nourished, uncomfortable appearing, wearing sunglasses in a dark room, nontoxic HEAD: Normocephalic, atraumatic. No periorbital edema or erythema. EYES: Photophobia is present. Pupils are PERRL, conjunctiva normal, extraocular muscles intact. No nystagmus. ENMT: External ears normal. TMs normal bilaterally. Nose with normal external appearance, no congestion. Oral mucous membranes moist. Oropharynx normal. Tongue midline, no fasciculations NECK: Full active range of motion. Chin to chest without difficulty. No rigidity. LYMPHATIC: No cervical adenopathy RESPIRATORY: Breathing unlabored and symmetric. Lungs clear to auscultation bilaterally. No wheeze, rales, or rhonchi. CARDIOVASCULAR: Regular rate and rhythm. No murmurs, rubs, or gallops. Radial and DP pulses 2+ bilaterally. MUSCULOSKELETAL: Moves all extremities at all joints without pain or difficulty. No cyanosis or edema. Back with full range of motion. SKIN: [place], warm, dry. No rash. NEUROLOGIC: Awake, alert, oriented. Cranial nerves II through XII intact. Circuit Board Drafter strength is weaker on the right compared to left. There is an intentional tremor with the right hand while performing [id number]. Strength 5+ in bilateral lower extremities. Patellar reflexes 2+ bilaterally. PSYCHIATRIC: Slightly anxious and tearful at times, otherwise appropriate. Course Consultations Consultation #1: Spoke with Dr. Corey (neurology on-call) regarding the patient's symptoms. He agrees with initial work-up of brain and cervical MRI with and without contrast. Does not feel the patient requires any additional treatment at this time until MRI has resulted. Agrees patient will likely be admitted regardless. Time: 14:10 Administered Medications Discontinued Medications Buspirone HCl (Buspirone 15 Mg Tab) 30 mg PO QPM RONALDO Stop: 11/10/22 20:59 Last Admin: 10/11/22 21:58 Dose: 30 mg Documented By: JASON Dexamethasone Sodium Phosphate (DexamethasonePf 10 Mg/Ml Vial) 6 mg IV NOW ONE Stop: 10/11/22 10:53 Last Admin: 10/11/22 11:03 Dose: 6 mg Documented By: YVETTE Gadobutrol (Gadobutrol 65ml Vial) 8.5 ml IV ONCE ONE Stop: 10/11/22 15:38 Last Admin: 10/11/22 15:38 Dose: 8.5 ml Documented By: KRISTINE Sodium Chloride (Nss 1000ml) 1,000 mls @ 999 mls/hr IV .Q1H1M RONALDO Stop: 10/11/22 12:00 Last Infusion: 10/11/22 12:38 Dose: 0 mls/hr Documented By: Admin: 10/11/22 11:04 Dose: 999 mls/hr Documented By: YVETTE Sodium Chloride (Nss) 500 mls @ 999 mls/hr IV .Q31M ONE Stop: 10/11/22 17:04 Last Infusion: 10/11/22 18:47 Dose: 0 mls/hr Documented By: Admin: 10/11/22 16:54 Dose: 999 mls/hr Documented By: ESVIN Ketorolac Tromethamine (Ketorolac Tromethamine 15 Mg/Ml Vial) 15 mg IV Q6H PRN PRN Reason: Pain Stop: 10/16/22 10:51 Last Admin: 10/12/22 10:23 Dose: 15 mg Documented By: Admin: 10/11/22 16:55 Dose: 15 mg Documented By: Admin: 10/11/22 11:03 Dose: 15 mg Documented By: YVETTE Metoclopramide HCl (Metoclopramide Hcl Inj 5 Mg/Ml 2 Ml Vial) 5 mg IV ONE ONE Stop: 10/11/22 16:34 Last Admin: 10/11/22 16:53 Dose: 5 mg Documented By: ESVIN Ondansetron HCl (Ondansetron Inj 2 Mg/Ml 2 Ml Vial) 4 mg IV NOW STA Stop: 10/11/22 10:53 Last Admin: 10/11/22 11:03 Dose: 4 mg Documented By: YVETTE Ondansetron HCl (Ondansetron Inj 2 Mg/Ml 2 Ml Vial) 4 mg IV Q6H PRN PRN Reason: Nausea Stop: 11/10/22 20:54 Last Admin: 10/12/22 10:22 Dose: 4 mg Documented By: BERENICE Propranolol HCl (Propranolol Hcl 60 Mg [place]) 60 mg PO QAM [facility] Stop: 11/11/22 12:29 Last Admin: 10/12/22 13:00 Dose: 60 mg Documented By: BERENICE Sertraline HCl (Sertraline Hcl 100 Mg Tablet) 200 mg PO QPM RONALDO Stop: 11/10/22 20:59 Last Admin: 10/11/22 21:58 Dose: 200 mg Documented By: JASON Sumatriptan Succinate (Sumatriptan Succinate 50 Mg Tab) 50 mg PO NOW STA Stop: 10/11/22 16:27 Last Admin: 10/11/22 17:06 Dose: 50 mg Documented By: KRISTI Sumatriptan Succinate (Sumatriptan Succinate 50 Mg Tab) 50 mg PO UD PRN PRN Reason: MIGRAINES Stop: 11/10/22 20:54 Last Admin: 10/12/22 13:35 Dose: 50 mg Documented By: BERENICE Topiramate (Topiramate 25 Mg Tab) 25 mg PO BID RONALDO Stop: 11/10/22 20:59 Last Admin: 10/12/22 08:22 Dose: 25 mg Documented By: Admin: 10/11/22 21:58 Dose: 25 mg Documented By: JASON Medical Decision Making Differential Diagnosis Complex migraine headache, venous sinus thrombosis, multiple sclerosis, Guillain-Silva syndrome, transverse myelitis, cauda equina syndrome, meningitis, CVA, aneurysm, cluster headache, intracranial hemorrhage, among other pathology Medical Records Attestation: I reviewed the patient's medical records. Laboratory Data Result diagrams: 10/12/22 06:18 10/12/22 06:18 Lab Results 10/11/22 10/11/22 10/11/22 Range/Units 11:07 11:07 17:09 WBC 7.11 (4.8-10.8) K/ul RBC 4.41 (3.93-5.22) M/uL Hgb 14.4 (12.0-16.0) g/dl Hct 41.1 (34.1-44.9) % MCV 93.2 (80.0-100.0) fL MCH 32.7 (25.0-34.0) pg MCHC 35.0 (32.0-36.0) g/dL RDW Std Deviation 41.4 (36.4-46.3) fL RDW Coeff of [place] 12.0 (11.5-14.5) % Plt Count 219 (130-400) K/uL MPV 10.4 (9.4-12.3) fL Immature Gran % (Auto) 0.7 % Neut % (Auto) 57.8 % Lymph % (Auto) 31.2 % [place] % (Auto) 6.8 % Eos % (Auto) 2.8 % Baso % (Auto) 0.7 % Neut # (Auto) 4.11 (1.4-6.5) K/uL Lymph # (Auto) 2.22 (1.2-3.4) K/uL [place] # (Auto) 0.48 (0.24-0.82) K/uL Eos # (Auto) 0.20 (0-0.50) K/uL Baso # (Auto) 0.05 (0-0.2) K/uL Immature Gran # (Auto) 0.05 H (0.00-0.02) K/uL Sodium 138 (136-145) mmol/L Potassium 3.9 (3.5-5.1) mmol/L Chloride 106 (98-107) mmol/L Carbon Dioxide 24 (21-32) mmol/L Anion Gap 8 (3-11) BUN 13 (6-23) mg/dl Creatinine 0.78 (0.6-1.2) mg/dl Est Cr Clr Drug Dosing 108.2 ml/min Est GFR ( Amer) 114.2 ml/min Est GFR (Non-Af Amer) 98.5 ml/min BUN/Creatinine Ratio 16.7 (10-20) Glucose 93 (70-99(Fasting)) mg/dl Calcium 9.0 (8.5-10.1) mg/dl Total Bilirubin 0.5 (0.2-1.0) mg/dl AST 19 (13-39) U/L ALT 32 (7-52) U/L Alkaline Phosphatase 50 (34-104) U/L Total Protein 7.0 (6.0-8.3) gm/dl Albumin 4.5 (3.4-5.0) gm/dl Globulin 2.5 (2.5-4.0) gm/dl Albumin/Globulin Ratio 1.8 (0.9-2) SARS-CoV-2, RNA, NAAT NEGATIVE (NEGATIVE) Imaging Data Radiologist's Impression: Brain MRI 10/11/22 13:14 MR brain wo/w con HISTORY: 37 years-old Female R vis field def. b/l JACKSON, RUE tremor, B/L leg weak subacute severe headache for several months COMPARISON: None TECHNIQUE: Multiplanar multisequence MRI of the brain was obtained both with and without the use of 8.5 cc Gadavist FINDINGS: There is no restricted diffusion to suggest acute or subacute infarct. The midline structures appear unremarkable. Low-lying cerebellar tonsils. No acute intracranial hemorrhage, midline shift, abnormal extra-axial collection, hydrocephalus or intracranial mass. No pathologic blooming artifact. The volume and signal of the brain parenchyma is within normal limits. No abnormal enhancement. Cerebral venous sinuses and major arterial flow voids appear patent. The skull, orbits and soft tissues are unremarkable. Mastoid air cells are clear. There is mild mucosal thickening of the paranasal sinuses, most pronounced in the left maxillary sinus. IMPRESSION: 1. No acute intracranial abnormality. 2. No abnormal enhancement. 3. Mild paranasal sinus disease. ACT 112: Negative or not required by law. The above report was generated using voice recognition software. It may contain grammatical, syntax or spelling errors. Electronically signed by: Patrick Khan M.D. 10/11/2022 4:14 PM Cervical Spine MRI 10/11/22 13:14 CERVICAL SPINE MRI WITH AND WITHOUT CONTRAST HISTORY: R vis field def. Headache, right upper extremity tremor, B/L leg weak TECHNIQUE: Multiplanar multisequence MRI of the cervical spine was performed both before and after the use of intravenous contrast. COMPARISON STUDY: None. FINDINGS: No fracture or subluxation. Prevertebral soft tissues and the C1-C2 interval are intact. The visualized posterior fossa is unremarkable. The cervical spinal cord is normal in course, caliber, and signal intensity. Disc spaces are preserved for age. Normal marrow signal intensity seen throughout the visualized osseous structures. Postcontrast sequences show no areas of abnormal enhancement. C2-C3: No significant central canal or neural foraminal narrowing. C3-C4: No significant central canal or neural foraminal narrowing. C4-C5: No significant central canal or neural foraminal narrowing. C5-C6: No significant central canal or neural foraminal narrowing. C6-C7: No significant central canal or neural foraminal narrowing. C7-T1: No significant central canal or neural foraminal narrowing. IMPRESSION: No significant abnormality identified within the cervical spine. ACT 112: Negative or not required by law. Electronically signed by: Byron Spangler M.D. 10/11/2022 4:00 PM MDM Narrative 37-year-old female presents with progressive symptoms including bilateral headaches associated with photophobia and bilateral eye pressure, right eye visual field deficit, right hand tremor and weakness, intermittent leg weakness, and self-reported intermittent cognitive lapses. On her initial exam she does appear to be uncomfortable wearing sunglasses in a dark room with photophobia. She has appreciable weakness in the upper extremities with an associated intentional right hand tremor with [id number]. Remainder of initial exam is unremarkable. She was treated with Decadron, Toradol, Zofran, and IV fluids per nursing protocol, and this did improve her symptoms to some extent. I reevaluated the patient at bedside and she endorsed bilateral leg weakness, stated that she was having a difficult time moving her legs though could subtly move both of her toes. She demonstrated ability to stand a pivot about 1 hour after this episode. Stated that the leg weakness was intermittent. Case discussed with ED attending Dr. Ramsey. MRI with and without contrast of the head and neck were ordered. I also spoke with Dr. Corey (neurology) regarding patient's symptoms and initial work-up, he is comfortable with this initial work-up, agrees the patient should be admitted for further evaluation. Labs are unremarkable. MRI demonstrates mild paranasal sinus disease, otherwise reassuringly no concerning findings are appreciated. On reevaluation the patient's headache had worsened and she was feeling nauseous so she was given sumatriptan and Reglan. Intractable headache at this point with neurologic symptoms. I discussed the case with Kristie OREILLY with [facility] who agreed to admit the patient for observation with neurology consult. Impression & Plan Acute intractable headache, Tremor of right hand Discharge Plan Visit Data Chief Complaint: Headache Stated Complaint: HEADACHE, NUMBNESS IN HANDS ED Provider: Primo Ramsey ED Midlevel Provider: Ross Terry Discharge Problem: Acute intractable headache, Tremor of right hand Patient Disposition: Admitted As Inpatient Condition: Fair Discharge Instructions Interventions: ED Discharge Assessment Last Done: 10/11/22 20:51 : Acute intractable headache Qualifiers: Headache type: unspecified Qualified Code(s): R51.9 - Headache, unspecified
[2022-10-11] MEDS ORDERED: GADOBUTROL 65ML VIAL IV ONE (15:37)
--- NOTE | 2022-10-11 16:02 | Magnetic Resonance Report ---
CERVICAL SPINE MRI WITH AND WITHOUT CONTRAST HISTORY: R vis field def. Headache, right upper extremity tremor, B/L leg weak TECHNIQUE: Multiplanar multisequence MRI of the cervical spine was performed both before and after th e use of intravenous contrast. COMPARISON STUDY: None. FINDINGS: No fracture or subluxation. Prevertebral soft tissues and the C1-C2 interval are intact. Th e visualized posterior fossa is unremarkable. The cervical spinal cord is normal in course, caliber, and signal intensity. Disc spaces are preserved for age. Normal marrow signal intensity seen througho ut the visualized osseous structures. Postcontrast sequences show no areas of abnormal enhancement. C2-C3: No significant central canal or neural foraminal narrowing. C3-C4: No significant central canal or neural foraminal narrowing. C4-C5: No significant central canal or neural foraminal narrowing. C5-C6: No significant central canal or neural foraminal narrowing. C6-C7: No significant central canal or neural foraminal narrowing. C7-T1: No significant central canal or neural foraminal narrowing. IMPRESSION: No significant abnormality identified within the cervical spine. ACT 112: Negative or not required by law. Electronically signed by: Byron Spangler M.D. 10/11/2022 4:00 PM
--- NOTE | 2022-10-11 16:16 | Magnetic Resonance Report ---
MR brain wo/w con HISTORY: 37 years-old Female R vis field def. b/l JACKSON, RUE tremor, B/L leg weak subacute severe heada mikey for several months COMPARISON: None TECHNIQUE: Multiplanar multisequence MRI of the brain was obtained both with and without the use of 8 .5 cc Gadavist FINDINGS: There is no restricted diffusion to suggest acute or subacute infarct. The midline structures appear unremarkable. Low-lying cerebellar tonsils. No acute intracranial hemorrhage, midline shift, abnormal extra-axial collection, hydrocephalus or intracranial mass. No pathologic blooming artifact. The vol ume and signal of the brain parenchyma is within normal limits. No abnormal enhancement. Cerebral venous sinuses and major arterial flow voids appear patent. The skull, orbits and soft tissu es are unremarkable. Mastoid air cells are clear. There is mild mucosal thickening of the paranasal s inuses, most pronounced in the left maxillary sinus. IMPRESSION: 1. No acute intracranial abnormality. 2. No abnormal enhancement. 3. Mild paranasal sinus disease. ACT 112: Negative or not required by law. The above report was generated using voice recognition software. It may contain grammatical, syntax o r spelling errors. Electronically signed by: Patrick Khan M.D. 10/11/2022 4:14 PM
[2022-10-11] MEDS ORDERED: SUMAtriptan succinate 50 MG TAB PO STA (16:26)
[2022-10-11] MEDS ORDERED: METOCLOPRAMIDE HCL INJ 5 MG/ML 2 ML VIAL IV ONE (16:33)
[2022-10-11] MEDS ORDERED: SODIUM CHLORIDE 0.9% 500 ML IV ONE (16:34)
--- NOTE | 2022-10-11 19:48 | History & Physical Report ---
Date of Service October 11, 2022 Assessment & Plan (1) Migraine: Plan: Observation to [facility] Patient presenting from home with reports of progressive worsening migraine type symptoms In the ED, brain and C-spine MRI unremarkable for acute findings. Labs unremarkable. Received IV dexamethasone, IV ketorolac, IV Reglan, IV Zofran, IVF, p.o. sumatriptan in ED with moderate improvement in symptoms. Patient recently started on Topamax by PCP for migraine prophylaxis as well as sumatriptan hand for breakthrough symptoms. Patient reports she does experience relief with sumatriptan however seems to be experiencing rebound headaches. Consider EEG Neurology consult (2) Anxiety: Plan: Continue buspirone DVT prophylaxis SCDs, ambulate History of Present Illness Chief Complaint: Headache Primary Care Provider: Jenny Berumen DO 37-year-old female with PMH anxiety, nephrolithiasis, chronic sinus issues, and other problems listed below who presents the ED for evaluation of headache. Over the past several months, patient has had persistent sinus symptoms. She was treated with antibiotics and prednisone with temporary relief. Patient seen by PCP on 10/05 for increasing headaches. Diagnosed with migraines and started on Topamax and as needed sumatriptan. Patient reports that over the past 1 week she has had worsening headaches with associated photophobia. She also notes intermittent bilateral arm and hand numbness and tingling. Today, while getting out of her car to go to work a coworker noted the patient was having some trouble walking. Patient reports she feels generally weak and unsteady on her feet. Patient then presented to the ED for further evaluation. Patient denies fevers, chills. No chest pain or shortness of breath. Has had associated nausea with migraines however denies abdominal pain, diarrhea. No urinary symptoms. In the ED, patient underwent brain and C-spine MRI that were unremarkable. Labs are unremarkable. Patient was given IV dexamethasone, IV ketorolac, IV Reglan, IV Zofran, IVF, p.o. sumatriptan. She reports moderate improvement in her symptoms. Allergies Allergy/AdvReac Type Severity Reaction Status Date / Time No Known Drug Allergies Allergy Verified 10/11/22 17:08 blue chucks Allergy skin Uncoded 10/11/22 17:08 irritation with blue chucks with prior c/s Home Medications Medication Instructions Recorded Confirmed Type albuterol sulfate 90 mcg/actuation 2 puff inhalation Q4H PRN Cough 10/11/22 10/11/22 History aerosol inhaler (Proventil HFA) azelastine 137 mcg (0.1 %) nasal 2 spray intranasal QAM 10/11/22 10/11/22 History spray aerosol buspirone 10 mg tablet 30 mg PO QPM 10/11/22 10/11/22 History cholecalciferol (vitamin D3) 50 50 mcg PO QPM 10/11/22 10/11/22 History mcg (2,000 unit) tablet fluticasone furoate 27.5 1 spray intranasal BID 10/11/22 10/11/22 History mcg/actuation nasal spray,suspension (Flonase Sensimist) multivitamin with minerals 1 cap PO QPM 10/11/22 10/11/22 History sertraline 100 mg tablet 200 mg PO QPM 10/11/22 10/11/22 History sumatriptan succinate 25 mg tablet 50 mg PO .UD 10/11/22 10/11/22 History topiramate 25 mg tablet 25 mg PO BID 10/11/22 10/11/22 History Past Med/Surg History Medical History Anxiety Asthma (12/22/12) Cystic fibrosis carrier, antepartum History of kidney stones Obesity Temporomandibular joint disorder occasional clicking; no locking Surgical History H/O laparoscopy H/O ventral hernia repair History of sinus surgery Hx of section 06/04/16 (breech): SAB x3 at L3-L4 at [facility]; patient states she has unilateral numbness initially but it did distribute evenly eventually. She also states that she had significant pain toward end of c/s Second 06/29 Family History Mother Diabetes Grandmother (Maternal) Hypertension Diabetes Grandmother (Paternal) Hypertension Diabetes Father Pancreas cancer Prostate cancer Grandfather (Maternal) Diabetes Grandfather (Paternal) Diabetes Social History Smoking Status: Never smoker Second Hand Exposure: No; Hx Alcohol Use: No Hx Substance Use: No Preferred Language: Thai Communication Ability: Effective Literature Teacher Required: No Beliefs That Will Affect Care: None marital status: Current Living Situation: Family Current Living Situation Comment: Lives with , 2 daughters, and a dog. Feels Safe at Home: Yes Assistive Devices: None Review of Systems Review of Systems: ROS per HPI, all other systems reviewed and negative Physical Exam Constitutional: WD/WN, vitals as above Eyes: PERRL, conjunctivae normal, anicteric sclerae ENMT: external ear and nose normal, oropharynx normal Respiratory: normal respiratory effort, lungs clear to auscultation Cardiovascular: Rate/Rhythm: regular rate and regular rhythm Vessels: normal peripheral pulses Extremities: no edema Gastrointestinal (Abdomen): normal bowel sounds, soft, nontender, no hepatosplenomegaly Musculoskeletal: no cyanosis or clubbing, extremities motor strength 5/5 Skin: no rashes, warm and dry Neurologic: PERRL, EOMI, accommodation nl, no face palsy, no dysarthria Psychiatric: A+Ox3, euthymic affect Results & Data Results & Data ([facility]) Vital Signs (Past 12 Hours) Vital Signs Temp Pulse Pulse Resp BP BP Pulse Ox 10/11/22 16:24 75 16 114/70 97 10/11/22 12:35 64 18 110/77 97 10/11/22 10:45 36.9 C 66 16 137/94 99 O2 Del Method 10/11/22 16:24 10/11/22 12:35 10/11/22 10:45 Room Air Laboratory Results Short CBC 10/11/22 Range/Units 11:07 WBC 7.11 (4.8-10.8) K/ul Hgb 14.4 (12.0-16.0) g/dl Hct 41.1 (34.1-44.9) % Plt Count 219 (130-400) K/uL BMP 10/11/22 11:07 Sodium 138 Potassium 3.9 Chloride 106 Carbon Dioxide 24 BUN 13 Creatinine 0.78 Glucose 93 Calcium 9.0 Liver Function 10/11/22 Range/Units 11:07 Total Bilirubin 0.5 (0.2-1.0) mg/dl AST 19 (13-39) U/L ALT 32 (7-52) U/L Alkaline Phosphatase 50 (34-104) U/L Albumin 4.5 (3.4-5.0) gm/dl Urine 10/11/22 Range/Units Unknown Urine Color Yellow Urine Appearance Clear (Clear) Urine pH 7.0 (4.5-7.5) Ur Specific [place] 1.006 (1.000-1.030) Urine Protein Negative (Negative) Urine Glucose (UA) Negative (Negative) Diagnostic Findings Brain MRI 10/11/22 13:14 MR brain wo/w con HISTORY: 37 years-old Female R vis field def. b/l JACKSON, RUE tremor, B/L leg weak subacute severe headache for several months COMPARISON: None TECHNIQUE: Multiplanar multisequence MRI of the brain was obtained both with and without the use of 8.5 cc Gadavist FINDINGS: There is no restricted diffusion to suggest acute or subacute infarct. The midline structures appear unremarkable. Low-lying cerebellar tonsils. No acute intracranial hemorrhage, midline shift, abnormal extra-axial collection, hydrocephalus or intracranial mass. No pathologic blooming artifact. The volume and signal of the brain parenchyma is within normal limits. No abnormal enhancement. Cerebral venous sinuses and major arterial flow voids appear patent. The skull, orbits and soft tissues are unremarkable. Mastoid air cells are clear. There is mild mucosal thickening of the paranasal sinuses, most pronounced in the left maxillary sinus. IMPRESSION: 1. No acute intracranial abnormality. 2. No abnormal enhancement. 3. Mild paranasal sinus disease. ACT 112: Negative or not required by law. The above report was generated using voice recognition software. It may contain grammatical, syntax or spelling errors. Electronically signed by: Patrick Khan M.D. 10/11/2022 4:14 PM Cervical Spine MRI 10/11/22 13:14 CERVICAL SPINE MRI WITH AND WITHOUT CONTRAST HISTORY: R vis field def. Headache, right upper extremity tremor, B/L leg weak TECHNIQUE: Multiplanar multisequence MRI of the cervical spine was performed both before and after the use of intravenous contrast. COMPARISON STUDY: None. FINDINGS: No fracture or subluxation. Prevertebral soft tissues and the C1-C2 interval are intact. The visualized posterior fossa is unremarkable. The cervical spinal cord is normal in course, caliber, and signal intensity. Disc spaces are preserved for age. Normal marrow signal intensity seen throughout the visualized osseous structures. Postcontrast sequences show no areas of abnormal enhancement. C2-C3: No significant central canal or neural foraminal narrowing. C3-C4: No significant central canal or neural foraminal narrowing. C4-C5: No significant central canal or neural foraminal narrowing. C5-C6: No significant central canal or neural foraminal narrowing. C6-C7: No significant central canal or neural foraminal narrowing. C7-T1: No significant central canal or neural foraminal narrowing. IMPRESSION: No significant abnormality identified within the cervical spine. ACT 112: Negative or not required by law. Electronically signed by: Byron Spangler M.D. 10/11/2022 4:00 PM Code Status & VTE Plan VTE Prophylaxis Plan VTE Prophylaxis will be ordered: Yes Supervising Physician Co-Signing Physician Notes Patient seen and examined independently. Agree with above documentation by Kristie OREILLY. Patient admitted for intractable headache. Complex partial seizure vs migraine. Patient unable to return back home due to intractable pain. MRI brain doesn't show any acute findings. Admit to medical floor, will obtain neurology consultation.
[2022-10-11] MEDS ORDERED: ONDANSETRON INJ 2 MG/ML 2 ML VIAL IV PRN (20:55)
[2022-10-11] MEDS ORDERED: ACETAMINOPHEN 325 MG TAB PO PRN (20:55)
[2022-10-11] MEDS ORDERED: SUMAtriptan succinate 50 MG TAB PO PRN (20:55)
[2022-10-11] MEDS ORDERED: SERTRALINE HCL 100 MG TABLET PO SCH (21:00)
[2022-10-11] MEDS ORDERED: busPIRone 15 MG TAB PO SCH (21:00)
[2022-10-11] MEDS: TOPIRAMATE 25 MG TAB PO SCH (21:58)
[2022-10-12 07:20] LABS: Hematocrit (blood only) 37.9 % (34.1-44.9); Hemoglobin 13.3 g/dl (12.0-16.0); Mean Corpuscular Hgb Conc 35.1 g/dL (32.0-36.0); Mean Platelet Volume 10.5 fL (9.4-12.3); Platelet Count 217 K/uL (130-400); RDW Coefficient of Variation 11.9 % (11.5-14.5); RDW Standard Deviation 41.3 fL (36.4-46.3); Red Blood Count 4.03 M/uL (3.93-5.22); White Blood Count 9.68 K/ul (4.8-10.8)
[2022-10-12 07:46] LABS: BUN Creatinine Ratio 15.1 (10-20); Calcium 8.3 mg/dl (8.5-10.1); Creatinine Clr Calc Pharmacy 114.6 ml/min; Est GFR (African American) 123.7 ml/min; Est GFR (Non-African American) 106.7 ml/min; Potassium 3.7 mmol/L (3.5-5.1)
[2022-10-12] MEDS: TOPIRAMATE 25 MG TAB PO SCH (08:22)
[2022-10-12] MEDS: KETOROLAC TROMETHAMINE 15 MG/ML VIAL IV PRN (10:23)
--- NOTE | 2022-10-12 11:54 | Neurology Consultation ---
Date of Consultation October 12, 2022 Assessment & Plan (1) Complicated migraine: Plan 37-year-old female with probable complicated migraine episode, occurring in the context of high-frequency episodic migraine. No evidence of multiple sclerosis, stroke, neoplasm or other significant pathology on MRI of the brain and cervical spine. Incidental cerebellar tonsillar ectopia noted. No signs or symptoms suggestive of meningitis or encephalitis. No supportive evidence of epilepsy or seizure disorder. Patient's PCP has recently started topiramate. I would recommend increasing the dosage of this medication to 50 mg twice daily for migraine prevention which is the typical therapeutic dosage. I think it would also be reasonable to add a low-dose of propranolol ER at this time, starting with 60 mg/day as an additional medication for migraine control. Propranolol may also be useful for anxiety. She may continue with sumatriptan tablets at the current dosage for acute migraine treatment. However, if she needs to redose this medication, would recommend switching to the 100 mg dosage. Acutely, I do not object to use of Toradol and Zofran IV as ordered. Could also switch patient's sumatriptan to the subcutaneous injection if the tablets are not effective. Furthermore, if patient's headache persists today, would recommend giving additional corticosteroids, would try Solu-Medrol 250 mg IV x1, followed by a Medrol Dosepak taper. Also, if patient's migraines do not respond to sumatriptan or Toradol as above, could try olanzapine 5 mg/day for the next 5 to 10 days to break her current migraine cycle. History of Present Illness Reason for Consultation: migraine Requesting Physician: DENILSON No Attending Physician: Christos Xiong MD History of Present Illness The patient is a 37-year-old female who presented to the emergency department yesterday with a complaint of headache and numbness. She complains of chronic intermittent headache with associated light sensitivity. On the day of her assessment in the emergency department, she began to notice a vision disturbance involving the upper outer aspect of her visual field to the right eye. She then developed associated weakness and shaking of the right hand. 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 She also complained of some numbness and tingling affecting the fingertips and toes as well as a feeling of generalized weakness. She has also complained of some cognitive symptoms, in particular episodes of losing track of what she is saying in conversation. Her primary care doctor had recently started the patient on topiramate for migraine prevention, and Imitrex for acute treatment. The patient does indicate that the Imitrex has been helpful although she has not really noticed much improvement with topiramate. She indicates that her migraines are typically right-sided, behind the right eye, and occur with associated nausea and light sensitivity. She is typically used a variety of [id number] medications to treat her migraines and only more recently was given some prescriptions by her PCP. During her assessment in the emergency department she was treated with Toradol, Zofran, and Decadron which significantly improved her symptoms. I had discussed her case with the attending ER physician last night and had recommended additional imaging including MRI of the brain and cervical spine. She did have extensive symptomatology in the differential diagnosis included complicated migraine, MS, stroke, and other potential worrisome BACKUP SAWYER pathology. However, complicated migraine was felt to be the most likely diagnosis. The patient has completed the requested MRI of the brain and cervical spine. I independently reviewed these images. In summary, no significant abnormality, no evidence of hydrocephalus, neoplasm, stroke, or demyelinating disease. She has incidental low-lying cerebellar tonsils. No evidence of significant cervical degenerative disc disease, spinal stenosis, or myelopathy. Allergies Allergy/AdvReac Type Severity Reaction Status Date / Time No Known Drug Allergies Allergy Verified 10/11/22 17:08 blue chucks Allergy skin Uncoded 10/11/22 17:08 irritation with blue chucks with prior c/s Home Medications Medication Instructions Recorded Confirmed Type albuterol sulfate 90 mcg/actuation 2 puff inhalation Q4H PRN Cough 10/11/22 10/11/22 History aerosol inhaler (Proventil HFA) azelastine 137 mcg (0.1 %) nasal 2 spray intranasal QAM 10/11/22 10/11/22 History spray aerosol buspirone 10 mg tablet 30 mg PO QPM 10/11/22 10/11/22 History cholecalciferol (vitamin D3) 50 50 mcg PO QPM 10/11/22 10/11/22 History mcg (2,000 unit) tablet fluticasone furoate 27.5 1 spray intranasal BID 10/11/22 10/11/22 History mcg/actuation nasal spray,suspension (Flonase Sensimist) multivitamin with minerals 1 cap PO QPM 10/11/22 10/11/22 History sertraline 100 mg tablet 200 mg PO QPM 10/11/22 10/11/22 History sumatriptan succinate 25 mg tablet 50 mg PO .UD 10/11/22 10/11/22 History topiramate 25 mg tablet 25 mg PO BID 10/11/22 10/11/22 History Patient History Medical History Anxiety Asthma (12/22/12) Cystic fibrosis carrier, antepartum History of kidney stones Obesity Temporomandibular joint disorder occasional clicking; no locking Surgical History H/O laparoscopy H/O ventral hernia repair History of sinus surgery Hx of section 06/04/16 (breech): SAB x3 at L3-L4 at [facility]; patient states she has unilateral numbness initially but it did distribute evenly eventually. She also states that she had significant pain toward end of c/s Second 06/29 Family History Mother Diabetes Grandmother (Maternal) Hypertension Diabetes Grandmother (Paternal) Hypertension Diabetes Father Pancreas cancer Prostate cancer Grandfather (Maternal) Diabetes Grandfather (Paternal) Diabetes Social History Smoking Status: Never smoker Second Hand Exposure: No; Hx Alcohol Use: Yes Alcohol type: wine Hx Substance Use: No Preferred Language: Azeri Communication Ability: Effective Share Dairy Farmer Required: No Beliefs That Will Affect Care: None marital status: Current Living Situation: Family Current Living Situation Comment: Lives with , 2 daughters, and a dog. Other Information That Helps Us Care for You: No Feels Safe at Home: Yes Safety Concerns: Feels Safe At This Time Assistive Devices: Glasses Review of Systems Constitutional: no fever and no chills Eyes: no blind spots and no diplopia Ear, Nose, Mouth, Throat: no hearing loss Respiratory: no cough and no dyspnea Cardiovascular: no chest pain and no palpitations Gastrointestinal: + nausea Genitourinary: no dysuria Musculoskeletal: no neck pain and no myalgia Integumentary: no rash and no lesions Neurologic: as per Subjective / HPI Psychiatric: + anxiety Hematologic / Lymphatic: no easy bleeding and no easy bruising Exam (Neuro) Constitutional: well developed and well nourished; no acute distress Eyes: normal visual gaxiola by confrontation, PERRL, normal accommodation and EOM intact bilaterally; no fundoscopic abnormality, no nystagmus and no papilledema Cardiovascular: Vessels: normal carotid upstroke; no carotid bruit Neurologic: Oriented to:: Person, Place and Time Memory: Short Term Intact and Remote Intact Attention: Span Intact and Concentration Intact Language: Naming Objects and Repeating Phrases Speech Fluency: negative Dysarthria Speech Aphasia: negative Aphasia Fund of Knowledge: Current Events, Past History and Vocabulary Cranial Nerves: Normal II (Visual gaxiola full to confrontation, visual acuity normal), III, IV, (Pupils equal round reactive to light and accommodation, eye movements normal), V (Facial sensation intact), VII (There is no facial droop or weakness), VIII (Hearing intact), IX, X (Palate elevates to midline), XI (Shoulder shrug intact) and XII (Tongue pro trudes to midline) Motor Strength: Normal Lower Extremities and Normal Upper Extremities; negative Pronator Drift Motor Tone: Normal Lower Extremities and Normal Upper Extremities Muscle Bulk/Involuntary Movements: Action Tremor (mild) Laterality: Right; negative Muscle Atrophy Sensation: Light Touch Intact, Pain/Temperature Intact, Vibration Intact and Proprioception Intact Coordination: Normal; negative Limited Balance, Dysdiadochokinesia, Finger-Nose Abnormal or Heel-Flowers Abnormal Deep Tendon Reflexes: Rt Triceps: 2+, Lt Triceps: 2+, Rt Biceps: 2+, Lt Biceps: 2+, Rt Brachioradialis: 2+, Lt Brachioradialis: 2+, Rt Patellar: 2+, Lt Patellar: 2+, Rt Ankle: 2+ and Lt Ankle: 2+ Special Tests: negative Babinski Present Gait: Normal Station and Gait Results & Data ([facility]) Vital Signs (Past 12 Hours) Vital Signs Temp Pulse Resp BP Pulse Ox O2 Del Method 10/12/22 07:36 37.1 C 61 16 99/62 L 97 Room Air Laboratory Results WBC 9.68, hemoglobin 13.3, hematocrit 37.9, platelet count 217, sodium 139, potassium 3.7, BUN 11, creatinine 0.73, glucose 92, calcium 8.3, AST 19, ALT 32, SARS-CoV-2 negative Diagnostic Findings MRI of the brain and cervical spine are as described in history of present illness, I independently reviewed these images. An EEG completed this morning was normal, no epileptiform abnormalities. Coding Level of Care Code 90656 Initial Inpt Care Lvl 3 Diagnoses Complicated migraine G43.109
[2022-10-12] MEDS ORDERED: PROPRANOLOL HCL 60 MG LA CAP PO SCH (12:30)
--- NOTE | 2022-10-12 12:52 | Electroencephalogram ---
EEG Procedure Note Date of Service October 12, 2022 Start / End Times Start Time: 8:51 AM End Time: 9:11 AM Referring Physician DENILSON No History Headaches, tremors, memory issues, evaluate for seizure activity Home Medication List Medication Instructions Recorded Confirmed Type albuterol sulfate 90 mcg/actuation 2 puff inhalation Q4H PRN Cough 10/11/22 10/11/22 History aerosol inhaler (Proventil HFA) azelastine 137 mcg (0.1 %) nasal 2 spray intranasal QAM 10/11/22 10/11/22 History spray aerosol buspirone 10 mg tablet 30 mg PO QPM 10/11/22 10/11/22 History cholecalciferol (vitamin D3) 50 50 mcg PO QPM 10/11/22 10/11/22 History mcg (2,000 unit) tablet fluticasone furoate 27.5 1 spray intranasal BID 10/11/22 10/11/22 History mcg/actuation nasal spray,suspension (Flonase Sensimist) multivitamin with minerals 1 cap PO QPM 10/11/22 10/11/22 History sertraline 100 mg tablet 200 mg PO QPM 10/11/22 10/11/22 History sumatriptan succinate 25 mg tablet 50 mg PO .UD 10/11/22 10/11/22 History topiramate 25 mg tablet 25 mg PO BID 10/11/22 10/11/22 History Inpatient Medication List Buspirone HCl (Buspirone 15 Mg Tab) 30 mg PO QPM RONALDO Stop: 11/10/22 20:59 Last Admin: 10/11/22 21:58 Dose: 30 mg Documented By: JASON Ketorolac Tromethamine (Ketorolac Tromethamine 15 Mg/Ml Vial) 15 mg IV Q6H PRN PRN Reason: Pain Stop: 10/16/22 10:51 Last Admin: 10/12/22 10:23 Dose: 15 mg Documented By: Admin: 10/11/22 16:55 Dose: 15 mg Documented By: Admin: 10/11/22 11:03 Dose: 15 mg Documented By: YVETTE Ondansetron HCl (Ondansetron Inj 2 Mg/Ml 2 Ml Vial) 4 mg IV Q6H PRN PRN Reason: Nausea Stop: 11/10/22 20:54 Last Admin: 10/12/22 10:22 Dose: 4 mg Documented By: BERENICE Sertraline HCl (Sertraline Hcl 100 Mg Tablet) 200 mg PO QPM RONALDO Stop: 11/10/22 20:59 Last Admin: 10/11/22 21:58 Dose: 200 mg Documented By: ARACELISW Discontinued Medications Dexamethasone Sodium Phosphate (DexamethasonePf 10 Mg/Ml Vial) 6 mg IV NOW ONE Stop: 10/11/22 10:53 Last Admin: 10/11/22 11:03 Dose: 6 mg Documented By: YVETTE Gadobutrol (Gadobutrol 65ml Vial) 8.5 ml IV ONCE ONE Stop: 10/11/22 15:38 Last Admin: 10/11/22 15:38 Dose: 8.5 ml Documented By: KRISTINE Sodium Chloride (Nss 1000ml) 1,000 mls @ 999 mls/hr IV .Q1H1M RONALDO Stop: 10/11/22 12:00 Last Infusion: 10/11/22 12:38 Dose: 0 mls/hr Documented By: Admin: 10/11/22 11:04 Dose: 999 mls/hr Documented By: YVETTE Sodium Chloride (Nss) 500 mls @ 999 mls/hr IV .Q31M ONE Stop: 10/11/22 17:04 Last Infusion: 10/11/22 18:47 Dose: 0 mls/hr Documented By: Admin: 10/11/22 16:54 Dose: 999 mls/hr Documented By: ESVIN Metoclopramide HCl (Metoclopramide Hcl Inj 5 Mg/Ml 2 Ml Vial) 5 mg IV ONE ONE Stop: 10/11/22 16:34 Last Admin: 10/11/22 16:53 Dose: 5 mg Documented By: ESVIN Ondansetron HCl (Ondansetron Inj 2 Mg/Ml 2 Ml Vial) 4 mg IV NOW STA Stop: 10/11/22 10:53 Last Admin: 10/11/22 11:03 Dose: 4 mg Documented By: YVETTE Sumatriptan Succinate (Sumatriptan Succinate 50 Mg Tab) 50 mg PO NOW STA Stop: 10/11/22 16:27 Last Admin: 10/11/22 17:06 Dose: 50 mg Documented By: KRISTI Topiramate (Topiramate 25 Mg Tab) 25 mg PO BID RONALDO Stop: 11/10/22 20:59 Last Admin: 10/12/22 08:22 Dose: 25 mg Documented By: Admin: 10/11/22 21:58 Dose: 25 mg Documented By: JASON Description This is a 21 electrode EEG with a single channel dedicated to limited EKG. The electrodes were placed in accordance with the International 10-20 system. There is a posterior dominant rhythm of 9 Hz which is symmetrically distributed and attenuates with eye opening. There is a normal anterior to posterior organization. Photic stimulation is unremarkable. Hyperventilation was not performed. There is a symmetric frontal beta rhythm. There is no focal slowing. There are no epileptiform abnormalities. There are no sleep changes. Interpretation Normal-appearing awake/drowsy EEG. A normal EEG does not completely exclude a diagnosis of epilepsy. Further clinical correlation may be needed. [facility] Procedure Codes Indication for Procedure (1) Seizure-like activity: Neurology Neurology: [id number] EEG include record awake & drowsy
--- NOTE | 2022-10-12 14:17 | Discharge Summary ---
Date of Service October 12, 2022 Admission HPI Per Admitting Provider 37-year-old female with PMH anxiety, nephrolithiasis, chronic sinus issues, and other problems listed below who presents the ED for evaluation of headache. Over the past several months, patient has had persistent sinus symptoms. She was treated with antibiotics and prednisone with temporary relief. Patient seen by PCP on 10/05 for increasing headaches. Diagnosed with migraines and started on Topamax and as needed sumatriptan. Patient reports that over the past 1 week she has had worsening headaches with associated photophobia. She also notes intermittent bilateral arm and hand numbness and tingling. Today, while getting out of her car to go to work a coworker noted the patient was having some trouble walking. Patient reports she feels generally weak and unsteady on her feet. Patient then presented to the ED for further evaluation. Patient denies fevers, chills. No chest pain or shortness of breath. Has had associated nausea with migraines however denies abdominal pain, diarrhea. No urinary symptoms. In the ED, patient underwent brain and C-spine MRI that were unremarkable. Labs are unremarkable. Patient was given IV dexamethasone, IV ketorolac, IV Reglan, IV Zofran, IVF, p.o. sumatriptan. She reports moderate improvement in her symptoms. Admission Exam Per Admitting Provider 37-year-old female with PMH anxiety, nephrolithiasis, chronic sinus issues, and other problems listed below who presents the ED for evaluation of headache. Over the past several months, patient has had persistent sinus symptoms. She was treated with antibiotics and prednisone with temporary relief. Patient seen by PCP on 10/05 for increasing headaches. Diagnosed with migraines and started on Topamax and as needed sumatriptan. Patient reports that over the past 1 week she has had worsening headaches with associated photophobia. She also notes intermittent bilateral arm and hand numbness and tingling. Today, while getting out of her car to go to work a coworker noted the patient was having some trouble walking. Patient reports she feels generally weak and unsteady on her feet. Patient then presented to the ED for further evaluation. Patient denies fevers, chills. No chest pain or shortness of breath. Has had associated nausea with migraines however denies abdominal pain, diarrhea. No urinary symptoms. In the ED, patient underwent brain and C-spine MRI that were unremarkable. Labs are unremarkable. Patient was given IV dexamethasone, IV ketorolac, IV Reglan, IV Zofran, IVF, p.o. sumatriptan. She reports moderate improvement in her symptoms Principal Diagnosis Complex migrane Discharge Exam Constitutional: WD/WN, vitals as above Eyes: PERRL, conjunctivae normal, anicteric sclerae ENMT: external ear and nose normal, oropharynx normal Respiratory: normal respiratory effort, lungs clear to auscultation Cardiovascular: Rate/Rhythm: regular rate and regular rhythm Vessels: normal peripheral pulses Extremities: no edema Gastrointestinal (Abdomen): normal bowel sounds, soft, nontender, no hepatosplenomegaly Musculoskeletal: no cyanosis or clubbing, extremities motor strength 5/5 Skin: no rashes, warm and dry Neurologic: PERRL, EOMI, accommodation nl, no face palsy, no dysarthria Psychiatric: A+Ox3, euthymic affect Discharge Data Allergies Allergy/AdvReac Type Severity Reaction Status Date / Time No Known Drug Allergies Allergy Verified 10/11/22 17:08 blue chucks Allergy skin Uncoded 10/11/22 17:08 irritation with blue chucks with prior c/s Consultations 10/11/22 20:55 Consult Neurology Routine 10/11/22 21:23 ED Decision to Admit Stat Ordered Studies 10/11/22 13:14 MRI Brain [MR brain wo/w con] Stat MRI Cervical [MR cervical spine wo/w con] Stat Hospital Course (1) Acute migraine: (2) Complicated migraine: Plan 37-year-old female with PMH anxiety, nephrolithiasis, chronic sinus issues, and other problems listed below who presents the ED for evaluation of headache. Patient was started on Topamax and as needed sumatriptan by her primary care doctor for migraine headaches. However, patient continued to have intractable headaches for which she presented to the ED. MRI brain, MRI cervical spine was done which did not show any acute abnormality. Patient was admitted to the hospital for continued intractable pain and photophobia. She was treated with analgesics, antiemetics. Neurology was consulted. Neurology recommended increasing the Topamax dose to 50 mg twice daily, adding propanolol and continue to use sumatriptan as needed. EEG was done which did not show any acute abnormality. Prescription was provided to the patient as per recommendation by the neurologist. Follow-up was set up with primary care doctor and neurology. Patient's symptoms had improved on discharge. Total Time Total Time Spent Total Time Spent (In Minutes): 35 Total Time Includes: Examination of the Patient, Discharge Planning, Medication Reconciliation, Communication With Other Providers and Other Discharge Plan Discharge Items Patient Disposition: Home - Self-Care Reason For Visit: MIGRAINE Discharge Diagnosis: Complex Migrane Condition on Discharge: Fair Activity: Resume your previous activity Non-emergency contact: Primary Care Provider Call non-emergency contact if: you have any medication questions and your symptoms worsen Follow-up/Referrals: Venkat Corey MD [Physician] - Jenny Berumen DO [Primary Care Provider] - 10/20/22 11:10 am (Date & Time 10/20/2022 11:10 AM Provider Jenny Berumen DO Department Family Medicine [facility] ) Diet: Regular Addtl Attending Provider Instructions: You were admitted to the hospital with complex migraine. MRI brain and MRI cervical spine did not show acute intracranial abnormality. EEG was done which was interpreted by neurologist; no abnormality were seen. Your evaluated by the neurologist during the hospitalization. The recommendation are as follows: 1) Increase topiramate to 50 mg twice daily for migraine prevention. The new prescription is sent to the pharmacy. 2) Start on propanolol 60 mg once daily. 3) Take sumatriptan tablet at current dose for acute migraine treatment. You can use [id number] naproxen and Tylenol for pain as well as needed. Pending Studies at Discharge: No Stand-Alone Forms: [employer], Smoking Cessation Medications and DC Order Prescriptions: New propranolol 60 mg Capsule,Extended Release 24 Hr 60 mg PO QAM Qty: 30 0RF sumatriptan succinate 50 mg Tablet 50 mg PO UD PRN (Reason: migraine headache) Qty: 15 0RF topiramate 50 mg Tablet 50 mg PO BID Qty: 60 0RF ondansetron 4 mg tablet,disintegrating 4 mg PO DAILY PRN (Reason: nausea and vomiting) 14 Days Qty: 14 0RF Continued buspirone 10 mg tablet 30 mg PO QPM albuterol sulfate [Proventil HFA] 90 mcg/actuation Hfa Aerosol Inhaler 2 puff INHALATION Q4H PRN (Reason: Cough) Rx Instructions: USE THIS MED PRIOR TO EXERCISE, AND WITH SINUS INFECTIONS. cholecalciferol (vitamin D3) 50 mcg (2,000 unit) Tablet 50 mcg PO QPM sertraline 100 mg tablet 200 mg PO QPM Flonase Sensimist 27.5 mcg/actuation [place],Suspension 1 spray INTRANASAL BID Rx Instructions: into each nostril multivitamin with minerals Capsule 1 cap PO QPM azelastine 137 mcg (0.1 %) aerosol,spray 2 spray INTRANASAL QAM Discontinued sumatriptan succinate 25 mg tablet 50 mg PO .UD MDD 5 TABS Rx Instructions: TAKE TWO TABLETS AT ONSET OF MIGRAINE AND ONE TABLET EVERY TWO HOURS NEEDED. NOT MORE THAN 5 TABLETS IN 24HRS. topiramate 25 mg tablet 25 mg PO BID Rx Instructions: TAKE ONE IN THE MORNING AND ONE BEFORE BEDTIME. Discharge Orders: Discharge Order (Routine); Ordered 10/12/22 Ordered By: Christos Xiong Admission Data Admit Date/Time: 10/11/22 17:53 Attending Provider: Christos Xiong Admit Provider: Alon Edwards Primary Care Provider: Jenny Berumen Other Providers: Venkat Corey ; Christos Xiong Other Interventions: Discharge Summary Assessment (RN) Last Done: 10/12/22 14:00
[2022-10-12] MEDS ORDERED: TOPIRAMATE 50 MG TAB PO SCH (21:00)
== END 2022-10-12 14:55 | disposition home or self-care (01) ==
LOC: EDINP 10:17 → ED 10:17 → 3W 20:51